=== PATIENT | female | born 1935 | race Caucasian/White ===

== ENCOUNTER 2019-05-08 10:42 | Emergency (ER) | payer MEDICARE ==
--- NOTE | 2019-05-08 11:14 | ER Document Report ---
ED Medical Screen (RME) - General Chief Complaint: Urinary Frequency Stated Complaint: EAR PAIN, URINARY ISSUES Time Seen by Provider: 05/08/19 11:07 Mode of Arrival: Ambulatory Information source: Patient Notes: This 84-year-old female presents emergency department with urinary frequency for the past 2 weeks. Patient gives history of back surgery 2 months ago with a UTI post surgery. She reports she was treated with antibiotics for that and she believes the UTI is back. She also complains of lower abdominal pain in bilateral flank pain. She reports that abdominal pain and flank pain come and go. She also complains that when she lays on her left side her right ear hurts. Denies fever vomiting diarrhea. No abdominal pain with palpation at this time but patient reports bilateral flank pain tender to palpate. I have greeted and performed a rapid initial assessment of this patient. A comprehensive ED assessment and evaluation of the patient, analysis of test results and completion of the medical decision making process will be conducted by additional ED providers. Dictation of this chart was performed using voice recognition software; therefore, there may be some unintended grammatical errors. TRAVEL OUTSIDE OF THE [place] IN LAST 30 DAYS: No - Related Data Allergies/Adverse Reactions: No Known Allergies Allergy (Unverified 05/08/19 10:44) Physical Exam - Vital signs Vitals: Temp Pulse Resp BP Pulse Ox 97.4 F 100 18 105/57 L 95 05/08/19 10:52 05/08/19 10:52 05/08/19 10:52 05/08/19 10:52 05/08/19 10:52 Course - Vital Signs Vital signs: Temp Pulse Resp BP Pulse Ox 97.4 F 100 18 105/57 L 95 05/08/19 10:52 05/08/19 10:52 05/08/19 10:52 05/08/19 10:52 05/08/19 10:52
[2019-05-08 11:37] LABS: ABSOLUTE LYMPHOCYTES (AUTO) 1.3 10^3/uL (0.5-4.7); ABSOLUTE MONOCYTES (AUTO) 0.4 10^3/uL (0.1-1.4); ABSOLUTE NEUT (AUTO) 4.6 10^3/uL (1.7-8.2); BASOPHILS % (AUTO) 0.5 % (0-2); EOSINOPHILS % (AUTO) 0.8 % (0-6); HEMOGLOBIN 15.3 g/dL (12.0-15.5); LYMPHOCYTES % (AUTO) 19.8 % (13-45); MEAN CORPUSCULAR HEMOGLOBIN 31.3 pg (27.0-33.4); MEAN CORPUSCULAR VOLUME 92 fl (80-97); MONOCYTES % (AUTO) 6.4 % (3-13); PLATELET COUNT 175 10^3/uL (150-450); RED BLOOD COUNT 4.88 10^6/uL (3.72-5.28); RED CELL DISTRIBUTION WIDTH 14.8 % (11.5-14.0); SEGMENTED NEUTROPHILS % (AUTO) 72.5 % (42-78); TOTAL CELLS COUNTED % (AUTO) 100 %; WHITE BLOOD COUNT 6.4 10^3/uL (4.0-10.5)
[2019-05-08 11:40] LABS: APPEARANCE,URINE SLIGHTLY-CLOUDY; BILIRUBIN,URINE NEGATIVE (NEGATIVE); COLOR,URINE YELLOW; GLUCOSE, URINE NEGATIVE (NEGATIVE); KETONES,URINE NEGATIVE (NEGATIVE); LEUKOCYTE ESTERASE,URINE LARGE (NEGATIVE); NITRITE,URINE NEGATIVE (NEGATIVE); PROTEIN,URINE NEGATIVE (NEGATIVE); URINE SPECIFIC GRAVITY 1.008; UROBILINOGEN,URINE NEGATIVE mg/dL (<2.0)
[2019-05-08 11:55] LABS: ALBUMIN 4.2 g/dL (3.5-5.0); ALKALINE PHOSPHATASE 69 U/L (38-126); ANION GAP 8 (5-19); ASPARTATE AMINO TRANSFERASE 21 U/L (14-36); BILIRUBIN,DIRECT 0.2 mg/dL (0.0-0.4); BILIRUBIN,TOTAL 0.8 mg/dL (0.2-1.3); BLOOD UREA NITROGEN 15 mg/dL (7-20); CALCIUM 9.8 mg/dL (8.4-10.2); CARBON DIOXIDE 30 mmol/L (22-30); CHLORIDE 101 mmol/L (98-107); GLUCOSE 83 mg/dL (75-110); POTASSIUM 4.7 mmol/L (3.6-5.0)
[2019-05-08] MEDS ORDERED: CEFTRIAXONE 1 GM/D5W RTU 1 GM/50 ML RTUPB IV ONE (12:13)
[2019-05-08] MEDS ORDERED: CIPROFLOXACIN HCL/DEXAMETH OTIC DROP 7.5 ML AD ONE (13:28)
--- NOTE | 2019-05-08 13:28 | ER Document Report ---
ED GI/ - General Chief Complaint: Urinary Frequency Stated Complaint: EAR PAIN, URINARY ISSUES Time Seen by Provider: 05/08/19 11:07 Mode of Arrival: Ambulatory Notes: RME NOTE: This 84-year-old female presents emergency department with urinary frequency for the past 2 weeks. Patient gives history of back surgery 2 months ago with a UTI post surgery. She reports she was treated with antibiotics for that and she b elieves the UTI is back. She also complains of lower abdominal pain in bilateral flank pain. She reports that abdominal pain and flank pain come and go. She also complains that when she lays on her left side her right ear hurts. Denies fever vomiting diarrhea. No abdominal pain with palpation at this time but patient reports bilateral flank pain tender to palpate. My HPI: Patient is also complaining of generalized right ear pain. Patient states she has generalized cough and congestion but "I always have a runny nose." Patient is denying any abdominal pain upon my assessment. Is complaining of generalized bilateral flank pain. Denies any fevers or vomiting. Past medical history: Hypertension Medication: Metoprolol TRAVEL OUTSIDE OF THE [place] IN LAST 30 DAYS: No - Related Data Allergies/Adverse Reactions: No Known Allergies Allergy (Unverified 05/08/19 10:44) Past Medical History - General Information source: Patient - Social History Smoking Status: Never Smoker Frequency of alcohol use: None Drug Abuse: None Family History: Reviewed & Not Pertinent Patient has suicidal ideation: No Patient has homicidal ideation: No Review of Systems - Review of Systems Constitutional: denies: Fever EENT: See HPI Cardiovascular: No symptoms reported Respiratory: No symptoms reported Gastrointestinal: See HPI Genitourinary: See HPI Female Genitourinary: No symptoms reported Musculoskeletal: See HPI Skin: No symptoms reported Hematologic/Lymphatic: No symptoms reported Neurological/Psychological: No symptoms reported Physical Exam - Vital signs Vitals: Temp Pulse Resp BP Pulse Ox 97.4 F 100 18 105/57 L 95 05/08/19 10:52 05/08/19 10:52 05/08/19 10:52 05/08/19 10:52 05/08/19 10:52 - Notes Notes: GENERAL: Alert, interacts well. No acute distress. HEAD: Normocephalic, atraumatic. EYES: Pupils equal, round, and reactive to light. Extraocular movements intact. ENT: Oral mucosa moist, tongue midline. Nares patent, left TM intact, right TM partially blocked by cerumen, right tragal tenderness noted, no mastoid erythema or tenderness noted bilaterally. NECK: Full range of motion. Supple. Trachea midline. No cervical lymphadeno [place] appreciated LUNGS: Clear to auscultation bilaterally, no wheezes, rales, or rhonchi. No respiratory distress. HEART: Regular rate and rhythm. No murmur ABDOMEN: Soft, non-tender. Non-distended. Bowel sounds present in all 4 quadrants. EXTREMITIES: Moves all 4 extremities spontaneously. No edema, normal radial and dorsalis pedis pulses bilaterally. No cyanosis. BACK: no cervical, thoracic, lumbar midline tenderness. No saddle anesthesia, normal distal neurovascular exam. Minor CVA tenderness noted bilaterally NEUROLOGICAL: Alert and oriented x3. Normal speech. cranial nerves II through X II grossly intact PSYCH: Normal affect, normal mood. SKIN: Warm, dry, normal turgor. No rashes or lesions noted. Course - Re-evaluation Re-evalutation: 05/08/19 13:25 Laboratory 05/08/19 05/08/19 05/08/19 11:23 11:23 11:23 WBC 6.4 RBC 4.88 Hgb 15.3 Hct 45.0 MCV 92 MCH 31.3 MCHC 34.0 RDW 14.8 H Plt Count 175 Lymph % (Auto) 19.8 [place] % (Auto) 6.4 Eos % (Auto) 0.8 Baso % (Auto) 0.5 Absolute Neuts (auto) 4.6 Absolute Lymphs (auto) 1.3 Absolute Monos (auto) 0.4 Absolute Eos (auto) 0.0 Absolute Basos (auto) 0.0 Seg Neutrophils % 72.5 Sodium 139.2 Potassium 4.7 Chloride 101 Carbon Dioxide 30 Anion Gap 8 BUN 15 Creatinine 0.87 Est GFR ( Amer) > 60 Est GFR (MDRD) Non-Af > 60 Glucose 83 Calcium 9.8 Total Bilirubin 0.8 Direct Bilirubin 0.2 Neonat Total Bilirubin Not Reportable Neonat Direct Bilirubin Not Reportable Neonat Indirect Bili Not Reportable AST 21 ALT 17 Alkaline Phosphatase 69 Total Protein 7.0 Albumin 4.2 Urine Color YELLOW Urine Appearance SLIGHTLY-CLOUDY Urine pH 7.0 Ur Specific [place] 1.008 Urine Protein NEGATIVE Urine Glucose (UA) NEGATIVE Urine Ketones NEGATIVE Urine Blood NEGATIVE Urine Nitrite NEGATIVE Urine Bilirubin NEGATIVE Urine Urobilinogen NEGATIVE Ur Leukocyte Esterase LARGE H Urine WBC (Auto) 144 Urine RBC (Auto) 1 Urine Bacteria (Auto) TRACE Squamous Epi Cells Auto 11 Urine Mucus (Auto) RARE Urine Ascorbic Acid 40 H Patient's urine does show signs of infection, sent for culture. Based on patient's complaint of treated with initial dose of ceftriaxone in the emergency room. Patient's physical exam of her right ear does show signs of otitis externa, will treat for same. Discussed use of Keflex for urinary tract infection. Patient has nausea vomiting, afebrile, conscious alert and oriented x4. At this time will discharge with return precautions and follow-up recommendations. Verbal discharge instructions given a the bedside and opportunity for questions given. Medication warnings reviewed. Patient is in agreement with this plan and has verbalized understanding of return precautions and the need for primary care follow-up in the next 24-72 hours. This medical record was dictated with voice recognizing software. There may be grammatical, syntax errors that are unintended. - Vital Signs Vital signs: Temp Pulse Resp BP Pulse Ox 97.4 F 100 18 105/57 L 95 05/08/19 10:52 05/08/19 10:52 05/08/19 10:52 05/08/19 10:52 05/08/19 10:52 - Laboratory Result Diagrams: 05/08/19 11:23 05/08/19 11:23 Laboratory results interpreted by me: 05/08/19 05/08/19 11:23 11:23 RDW 14.8 H Ur Leukocyte Esterase LARGE H Urine Ascorbic Acid 40 H Discharge - Discharge Clinical Impression: Urinary tract infection Qualifiers: Urinary tract infection type: acute cystitis Hematuria presence: with hematuria Qualified Code(s): N30.01 - Acute cystitis with hematuria Otitis externa Qualifiers: Otitis externa type: unspecified type Chronicity: acute Laterality: right Qualified Code(s): H60.501 - Unspecified acute noninfective otitis externa, right ear Condition: Stable Disposition: HOME, SELF-CARE Instructions: Otitis Externa ([facility]), Urinary Tract Infection ([facility]), Cephalexin ([facility]), Use of Ear Drops ([facility]) Additional Instructions: As we discussed you have been seen and treated in the emergency department for a urinary tract infection and an outer right ear infection. Please take medications as prescribed. Please also follow-up with your primary care provider in the next 24 to 48 hours. Return to the emergency room for any further concerns. Prescriptions: Ciprofloxacin HCl/Dexameth [Ciprodex Otic Suspension 7.5 ml Bottle] 4 drop OT BID #1 bottle Cephalexin Monohydrate [Keflex 500 mg Capsule] 500 mg PO BID 7 Days #14 capsule
[2019-05-08 13:49] VITALS: BP 110/52
== END 2019-05-08 13:49 | disposition home or self-care (01) ==
LOC: ER 10:42
DX: N30.01 Acute cystitis with hematuria (principal); H60.501 Unspecified acute noninfective otitis externa, right ear; R35.0 Frequency of micturition; R10.30 Lower abdominal pain, unspecified; H92.01 Otalgia, right ear; R05 Cough; R09.81 Nasal congestion; R09.89 Other specified symptoms and signs involving the circulatory and respiratory systems; R10.84 Generalized abdominal pain; I10 Essential (primary) hypertension; Z79.899 Other long term (current) drug therapy
CPT/HCPCS: 99283; 96365; 36415; 87086; 85025; 87088; 80053; 81001; 87186; J3490; J0696

== ENCOUNTER 2019-05-11 13:06 | Inpatient (IN) | payer MEDICARE ==
[2019-05-11] MEDS ORDERED: KETOROLAC TROMETHAMINE INJ/PF 30 MG/1 ML SDV IM ONE (14:06)
[2019-05-11] MEDS ORDERED: LIDOCAINE 5% (700 MG) TRANSDERMAL ADH..PATCH TP ONE (14:06)
[2019-05-11] MEDS ORDERED: METHOCARBAMOL 500 MG TABLET PO ONE (14:06)
--- NOTE | 2019-05-11 14:09 | ER Document Report ---
ED Medical Screen (RME) - General Chief Complaint: Back Pain Stated Complaint: BACK PAIN Time Seen by Provider: 05/11/19 13:58 Notes: Patient is an 84-year-old female presents to emergency department with a chief complaint of left lower back pain. Patient states yesterday while at the store she bent down to remove her depends and use the restroom when she developed left lower back pain. Patient reports she had surgery in November of this year for compression fracture. She states that she was told not to bend or twist. Patient concerned because she did have to bend down to pull her pants. Patient denies numbness or tingling to her lower extremities. Patient denies loss of bowel or bladder that is any different from her normal. Patient states she has not taken anything for her discomfort. Patient states that she is having left lower back pain that radiates into the left hip. Patient denies injury or fall. TRAVEL OUTSIDE OF THE [place] IN LAST 30 DAYS: No - Related Data Allergies/Adverse Reactions: No Known Allergies Allergy (Verified 05/11/19 13:21) Physical Exam - Vital signs Vitals: Temp Pulse Resp BP Pulse Ox 97.8 F 111 H 16 107/70 97 05/11/19 13:22 05/11/19 13:22 05/11/19 13:22 05/11/19 13:22 05/11/19 13:22 Interpretation: Tachycardic - Back Notes: NO CERVICAL, THORACIC OR LUMBAR MIDLINE TENDERNESS WITH PALPATION. Tenderness noted to the left lower back and left gluteus georgi. The pain is worse with palpation. Course - Re-evaluation Re-evalutation: 05/11/19 14:09 I have greeted and performed a rapid initial assessment of this patient. A comprehensive ED assessment and evaluation of the patient, analysis of test results and completion of the medical decision making process will be conducted by additional ED providers. - Vital Signs Vital signs: Temp Pulse Resp BP Pulse Ox 97.8 F 111 H 16 107/70 97 05/11/19 13:22 05/11/19 13:22 05/11/19 13:22 05/11/19 13:22 05/11/19 13:22
[2019-05-11 15:53] LABS: BASOPHILS % (AUTO) 0.2 % (0-2); EOSINOPHILS % (AUTO) 0.4 % (0-6); HEMOGLOBIN 15.9 g/dL (12.0-15.5); TOTAL CELLS COUNTED % (AUTO) 100 %
[2019-05-11 15:58] LABS: ABSOLUTE LYMPHOCYTES (AUTO) 1.2 10^3/uL (0.5-4.7); ABSOLUTE MONOCYTES (AUTO) 0.4 10^3/uL (0.1-1.4); ABSOLUTE NEUT (AUTO) 5.9 10^3/uL (1.7-8.2); LYMPHOCYTES % (AUTO) 15.9 % (13-45); MEAN CORPUSCULAR HEMOGLOBIN 31.1 pg (27.0-33.4); MEAN CORPUSCULAR HGB CONC 33.9 g/dL (32.0-36.0); MEAN CORPUSCULAR VOLUME 92 fl (80-97); MONOCYTES % (AUTO) 5.5 % (3-13); PLATELET COUNT 183 10^3/uL (150-450); RED BLOOD COUNT 5.11 10^6/uL (3.72-5.28); RED CELL DISTRIBUTION WIDTH 14.5 % (11.5-14.0); WHITE BLOOD COUNT 7.5 10^3/uL (4.0-10.5)
[2019-05-11 16:10] LABS: ALBUMIN 4.6 g/dL (3.5-5.0); ANION GAP 11 (5-19); ASPARTATE AMINO TRANSFERASE 22 U/L (14-36); BILIRUBIN,DIRECT 0.2 mg/dL (0.0-0.4); BILIRUBIN,TOTAL 1.5 mg/dL (0.2-1.3); BLOOD UREA NITROGEN 14 mg/dL (7-20); CARBON DIOXIDE 28 mmol/L (22-30); CHLORIDE 100 mmol/L (98-107); GLUCOSE 93 mg/dL (75-110); POTASSIUM 4.8 mmol/L (3.6-5.0); TOTAL PROTEIN 7.6 g/dL (6.3-8.2)
[2019-05-11 16:12] LABS: ALKALINE PHOSPHATASE 83 U/L (38-126)
[2019-05-11] MEDS ORDERED: DILTIAZEM HCL/D5W 125 MG/125 ML RTUINJ IV PRN ×2 (18:21→21:01)
[2019-05-11] MEDS ORDERED: DILTIAZEM HCL INJ 25 MG/5 ML VIAL IV ONE (18:21)
[2019-05-11] MEDS ORDERED: NORMAL SALINE 500 ML IV ONE ×3 (18:53→19:57)
[2019-05-11 19:01] LABS: APPEARANCE,URINE SLIGHTLY-CLOUDY; BILIRUBIN,URINE NEGATIVE (NEGATIVE); COLOR,URINE YELLOW; GLUCOSE, URINE NEGATIVE (NEGATIVE); KETONES,URINE TRACE mg/dL (NEGATIVE); LEUKOCYTE ESTERASE,URINE MODERATE (NEGATIVE); NITRITE,URINE NEGATIVE (NEGATIVE); PROTEIN,URINE NEGATIVE (NEGATIVE); URINE SPECIFIC GRAVITY 1.017; UROBILINOGEN,URINE NEGATIVE mg/dL (<2.0)
--- NOTE | 2019-05-11 19:43 | EKG REPORT ---
SEVERITY:- ABNORMAL ECG - ATRIAL FIBRILLATION, V-RATE 93-176 REPOLARIZATION ABNORMALITY, PROB RATE RELATED : Confirmed by: Cassi Jean MD 11-May-2019 19:43:07
--- NOTE | 2019-05-11 19:49 | RADIOLOGY REPORT (SQ) ---
EXAM DESCRIPTION: CHEST SINGLE VIEW COMPLETED DATE/TIME: 05/11/2019 7:40 pm REASON FOR STUDY: rapid atrial fibrillation COMPARISON: None. EXAM PARAMETERS: NUMBER OF VIEWS: One view. TECHNIQUE: Single frontal radiographic view of the chest acquired. RADIATION DOSE: NA LIMITATIONS: None. FINDINGS: LUNGS AND PLEURA: No opacities, masses or pneumothorax. No pleural effusion. MEDIASTINUM AND HILAR STRUCTURES: No masses. Contour normal. HEART AND VASCULAR STRUCTURES: Heart normal in size. Normal vasculature. BONES: No acute findings. HARDWARE: None in the chest. OTHER: No other significant finding. IMPRESSION: NO ACUTE RADIOGRAPHIC FINDING IN THE CHEST. TECHNICAL DOCUMENTATION: JOB ID: [id number] [id number] 2010 [employer]- All Rights Reserved Reading location - IP/workstation name: [email or web address]
--- NOTE | 2019-05-11 20:32 | RADIOLOGY REPORT (SQ) ---
CT LUMBAR SPINE WITHOUT IV CONTRAST EXAM DATE: 05/11/2019 7:18 PM CDT HISTORY: Low back pain, h/o compression fx. COMPARISON: None. TECHNIQUE: CT scan of the lumbar spine without IV contrast. This exam was performed according to our departmental dose-optimization program, which includes automated exposure control, adjustment of the mA and/or kV according to patient size and/or use of iterative reconstruction technique. FINDINGS: There is an acute compression fracture of L3 with approximately 70% compression. No retropulsion. The disc spaces are preserved. Mild bilateral facet DJD. Prior kyphoplasty of L1 and L4. The sacroiliac joints demonstrate mild degenerative changes. IMPRESSION: 1. Acute L3 compression fracture without retropulsion. 2. Prior kyphoplasty of L1 and L4.
[2019-05-11] MEDS ORDERED: ACETAMINOPHEN 325 MG TABLET PO PRN (21:01)
[2019-05-11] MEDS ORDERED: MAG HYDROX/AL HYDROX/SIMETH SUSP 30 ML UDCUP PO PRN (21:01)
[2019-05-11] MEDS ORDERED: KETOROLAC TROMETHAMINE INJ/PF 30 MG/1 ML SDV IV PRN (21:05)
--- NOTE | 2019-05-11 21:06 | ER Document Report ---
ED General - General Chief Complaint: Back Pain Stated Complaint: BACK PAIN Time Seen by Provider: 05/11/19 13:58 TRAVEL OUTSIDE OF THE [place] IN LAST 30 DAYS: No - HPI Notes: Patient is an 84-year-old female who presents emergency department for evaluation of low back pain. She has a history of chronic back pain and multiple compression fractures. She states that she is not supposed to bend over. She was having some incontinence issues, had to clean herself, and bent over. This was 2 days ago. She had sudden onset severe pain in her lower back. It does not radiate. She was also seen here recently diagnosed with UTI. She states she is taking her medications as prescribed, starting yesterday. Patient also notes that she has a history of atrial fibrillation. She states that she stopped taking the rate control medicines that she did not like the way they made her feel. She has outright refused anticoagulation in the past. - Related Data Allergies/Adverse Reactions: No Known Allergies Allergy (Verified 05/11/19 13:21) Past Medical History - General Information source: Patient - Social History Smoking Status: Never Smoker Family History: Reviewed & Not Pertinent Patient has suicidal ideation: No Patient has homicidal ideation: No - Past Medical History Cardiac Medical History: Reports: Hx Atrial Fibrillation Musculoskeletal Medical History: Reports Other - Multiple compression fractures of the spine Review of Systems - Review of Systems Constitutional: See HPI EENT: No symptoms reported Cardiovascular: See HPI Respiratory: No symptoms reported Gastrointestinal: No symptoms reported Genitourinary: See HPI Musculoskeletal: See HPI Skin: No symptoms reported Neurological/Psychological: No symptoms reported Physical Exam - Vital signs Vitals: Temp Pulse Resp BP Pulse Ox 97.8 F 111 H 16 107/70 97 05/11/19 13:22 05/11/19 13:22 05/11/19 13:22 05/11/19 13:22 05/11/19 13:22 - Notes Notes: Vital signs reviewed, please refer to chart. Head is normocephalic, atraumatic. Pupils equal round, reactive to light. Neck is supple without meningismus. Heart is irregularly irregular and tachycardic. Lungs are clear to auscultation bilaterally. Abdomen is soft, nontender, normoactive bowel sounds throughout. Examination of the spine yields midline tenderness throughout the lumbar spine. Mild paraspinal musculature tenderness appreciated as well. Negative straight leg raise bilaterally. Strength is 4+ out of 5 bilateral lower extremities. Sensation is intact. Reflexes symmetrical. Extremities without cyanosis, clubbing. Posterior calves are nontender. Peripheral pulses are equal. Skin is warm and dry. Patient is awake, alert, neurological exam is nonfocal. Course - Re-evaluation Re-evalutation: 05/11/19 21:07 Patient presents emergency department for evaluation. Upon initial evaluation she is found to be markedly tachycardic. She does have some what appear to be rate related ischemic changes on EKG. She was placed on a talcer, Cardizem was administered. Laboratory investigations were obtained. Because of her significant lumbar spine pain, I did order a CT scan of the lumbar spine as well. Her images revealed no acute lumbar spine fracture without retropulsion. At this point, on a Cardizem drip, after receiving a small amount of fluids, the patient's heart rate is 106. Her blood pressures have normalized with a normal map. I spoke with Dr. Chapin, he will admit the patient for further care. - Vital Signs Vital signs: Temp Pulse Resp BP Pulse Ox 97.8 F 111 H 20 100/72 100 05/11/19 13:22 05/11/19 13:22 05/11/19 21:00 05/11/19 20:10 05/11/19 20:10 - Laboratory Result Diagrams: 05/11/19 15:30 05/11/19 15:30 Laboratory results interpreted by me: 05/11/19 05/11/19 05/11/19 15:30 15:30 18:10 Hgb 15.9 H RDW 14.5 H Total Bilirubin 1.5 H Urine Ketones TRACE H Ur Leukocyte Esterase MODERATE H Urine Ascorbic Acid 40 H - Diagnostic Test Radiology reviewed: Reports reviewed Radiology results interpreted by me: 05/11/19 21:08 Chest X-Ray 05/11/19 19:18 IMPRESSION: NO ACUTE RADIOGRAPHIC FINDING IN THE CHEST. Lumbar Spine CT 05/11/19 19:18 IMPRESSION: 1. Acute L3 compression fracture without retropulsion. 2. Prior kyphoplasty of L1 and L4. - EKG Interpretation by Me Additional EKG results interpreted by me: 05/11/19 21:08 Atrial fibrillation with a rate of [address] and T wave changes of the lateral leads, likely rate related ischemia. No old studies available for comparison. Discharge - Discharge Clinical Impression: Rapid atrial fibrillation Lumbar compression fracture Qualifiers: Encounter type: initial encounter Lumbar vertebra fracture level: L3 Qualified Code(s): S32.030A - Wedge compression fracture of third lumbar vertebra, initial encounter for closed fracture Condition: Stable Disposition: ADMITTED INPATIENT Admitting Provider: Tavares (Hospitalist) Unit Admitted: [facility]
[2019-05-12] MEDS: HEPARIN SOD (PORCINE) 5,000 UNIT/ML 1 ML VIAL SUBCUT SCH ×4 (00:43→21:28)
[2019-05-12 04:31] LABS: ABSOLUTE EOSINOPHILS # (AUTO) 0.1 10^3/uL (0.0-0.6); ABSOLUTE LYMPHOCYTES (AUTO) 1.4 10^3/uL (0.5-4.7); ABSOLUTE MONOCYTES (AUTO) 0.4 10^3/uL (0.1-1.4); ABSOLUTE NEUT (AUTO) 3.2 10^3/uL (1.7-8.2); BASOPHILS % (AUTO) 0.4 % (0-2); EOSINOPHILS % (AUTO) 1.3 % (0-6); HEMATOCRIT 39.7 % (36.0-47.0); LYMPHOCYTES % (AUTO) 27.3 % (13-45); MEAN CORPUSCULAR HEMOGLOBIN 30.8 pg (27.0-33.4); MEAN CORPUSCULAR HGB CONC 33.7 g/dL (32.0-36.0); MEAN CORPUSCULAR VOLUME 91 fl (80-97); MONOCYTES % (AUTO) 7.8 % (3-13); PLATELET COUNT 139 10^3/uL (150-450); RED BLOOD COUNT 4.35 10^6/uL (3.72-5.28); RED CELL DISTRIBUTION WIDTH 14.2 % (11.5-14.0); SEGMENTED NEUTROPHILS % (AUTO) 63.2 % (42-78); TOTAL CELLS COUNTED % (AUTO) 100 %; WHITE BLOOD COUNT 5.1 10^3/uL (4.0-10.5)
[2019-05-12 04:42] LABS: HEMOGLOBIN 13.4 g/dL (12.0-15.5)
[2019-05-12 04:52] LABS: ANION GAP 8 (5-19); BLOOD UREA NITROGEN 15 mg/dL (7-20); CARBON DIOXIDE 26 mmol/L (22-30); CHLORIDE 105 mmol/L (98-107); GLUCOSE 100 mg/dL (75-110)
[2019-05-12 04:58] LABS: POTASSIUM 3.7 mmol/L (3.6-5.0)
--- NOTE | 2019-05-12 05:55 | PDOC H&P ---
History of Present Illness Admission Date/PCP: 05/11/19 21:14 Patient complains of: Acute on chronic back pain History of Present Illness: HUGH MARINO is a 84 year old female with a past medical history of osteoporosis with recurrent vertebral fracture, atrial fibrillation without medication secondary to intolerance of metoprolol, refusing anticoagulation with a homeopathic preference. In the emergency room she is found to have a subacute LS compression fracture without retropulsion, symptoms are easily managed without narcotics. She is found to have A. fib with RVR started on IV Cardizem and referred to the hospitalist for admission. Patient denies chest pain nausea vomiting shortness of breath and is referred to the hospitalist for admission. Patient admits noncompliance with prescribed medications preferring homeopathic remedies. She is unaware of these specific remedy names or products. Past Medical History Cardiac Medical History: Reports: Atrial Fibrillation Musculoskeltal Medical History: Reports: Other - Multiple compression fractures of the spine Social History Information Source: Patient Lives with: Family Smoking Status: Never Smoker Frequency of Alcohol Use: None Hx Recreational Drug Use: No Drugs: None - Advance Directive Resuscitation Status: Full Code Family History Family History: Arthritis, Hypertension Parental Family History Reviewed: Yes Children Family History Reviewed: Yes Sibling(s) Family History Reviewed.: Yes Medication/Allergy Home Medications: Cephalexin Monohydrate [Keflex 500 mg Capsule] 500 mg PO BID 7 Days #14 capsule 05/08/19 Ciprofloxacin HCl/Dexameth [Ciprodex Otic Suspension 7.5 ml Bottle] 4 drop OT BID #1 bottle 05/08/19 Allergies/Adverse Reactions: No Known Allergies Allergy (Verified 05/11/19 13:21) Review of Systems Constitutional: ABSENT: chills, fever(s), headache(s), weight gain, weight loss Eyes: ABSENT: visual disturbances Ears: ABSENT: hearing changes Cardiovascular: ABSENT: chest pain, dyspnea on exertion, edema, orthropnea, palpitations Respiratory: ABSENT: cough, hemoptysis Gastrointestinal: ABSENT: abdominal pain, constipation, diarrhea, hematemesis, hematochezia, nausea, vomiting Genitourinary: ABSENT: dysuria, hematuria Musculoskeletal: ABSENT: joint swelling Integumentary: ABSENT: rash, wounds Neurological: ABSENT: abnormal gait, abnormal speech, confusion, dizziness, focal weakness, syncope Psychiatric: ABSENT: anxiety, depression, homidical ideation, suicidal ideation Endocrine: ABSENT: cold intolerance, heat intolerance, polydipsia, polyuria Hematologic/Lymphatic: ABSENT: easy bleeding, easy bruising Physical Exam Vital Signs: Temp Pulse Resp BP Pulse Ox 97.8 F 100 20 102/60 93 05/12/19 03:32 05/12/19 05:00 05/12/19 03:32 05/12/19 05:00 05/12/19 03:32 Intake & Output 05/10/19 05/11/19 05/12/19 11:59 11:59 11:59 Intake Total 1000 Balance 1000 Weight 67.9 kg General appearance: PRESENT: no acute distress, cooperative, well-developed, well-nourished Head exam: PRESENT: atraumatic, normocephalic Eye exam: PRESENT: conjunctiva pink, EOMI, PERRLA. ABSENT: scleral icterus Ear exam: PRESENT: normal external ear exam Mouth exam: PRESENT: moist, tongue midline Neck exam: ABSENT: carotid bruit, JVD, lymphadenopathy, thyromegaly Respiratory exam: PRESENT: clear to auscultation william. ABSENT: accessory muscle use, rales, rhonchi, wheezes Cardiovascular exam: PRESENT: RRR, +S1, +S2, tachycardia. ABSENT: diastolic murmur, rubs, systolic murmur Pulses: PRESENT: normal dorsalis pedis pul Vascular exam: PRESENT: normal capillary refill GI/Abdominal exam: PRESENT: normal bowel sounds, soft. ABSENT: distended, guarding, mass, organolmegaly, rebound, tenderness Rectal exam: PRESENT: deferred Extremities exam: PRESENT: full ROM. ABSENT: calf tenderness, clubbing, pedal edema Musculoskeletal exam: PRESENT: full ROM, other - L-spine mobility limited secondary to pain. ABSENT: tenderness Neurological exam: PRESENT: alert, awake, oriented to person, oriented to place, oriented to time, oriented to situation, CN II-XII grossly intact. ABSENT: motor sensory deficit Psychiatric exam: PRESENT: appropriate affect, normal mood. ABSENT: homicidal ideation, suicidal ideation Skin exam: PRESENT: dry, intact, warm. ABSENT: cyanosis, rash Results Laboratory Results: 05/12/19 04:06 05/12/19 04:06 05/11/19 05/11/19 05/11/19 15:30 15:30 15:30 WBC 7.5 RBC 5.11 Hgb 15.9 H Hct 47.0 MCV 92 MCH 31.1 MCHC 33.9 RDW 14.5 H Plt Count 183 Seg Neutrophils % 78.0 Sodium 139.0 Potassium 4.8 Chloride 100 Carbon Dioxide 28 Anion Gap 11 BUN 14 Creatinine 0.80 Est GFR ( Amer) > 60 Glucose 93 Calcium 10.0 Total Bilirubin 1.5 H AST 22 Alkaline Phosphatase 83 Total Protein 7.6 Albumin 4.6 TSH 1.62 Urine Color Urine Appearance Urine pH Ur Specific [place] Urine Protein Urine Glucose (UA) Urine Ketones Urine Blood Urine Nitrite Ur Leukocyte Esterase Urine WBC (Auto) Urine RBC (Auto) 05/11/19 05/12/19 05/12/19 18:10 04:06 04:06 WBC 5.1 RBC 4.35 Hgb 13.4 D Hct 39.7 MCV 91 MCH 30.8 MCHC 33.7 RDW 14.2 H Plt Count 139 L Seg Neutrophils % 63.2 Sodium 138.9 Potassium 3.7 D Chloride 105 Carbon Dioxide 26 Anion Gap 8 BUN 15 Creatinine 0.69 Est GFR ( Amer) > 60 Glucose 100 Calcium 9.0 Total Bilirubin AST Alkaline Phosphatase Total Protein Albumin TSH Urine Color YELLOW Urine Appearance SLIGHTLY-CLOUDY Urine pH 6.0 Ur Specific [place] 1.017 Urine Protein NEGATIVE Urine Glucose (UA) NEGATIVE Urine Ketones TRACE H Urine Blood NEGATIVE Urine Nitrite NEGATIVE Ur Leukocyte Esterase MODERATE H Urine WBC (Auto) 18 Urine RBC (Auto) 6 05/11/19 15:30 Troponin I < 0.012 Impressions: Chest X-Ray 05/11/19 19:18 IMPRESSION: NO ACUTE RADIOGRAPHIC FINDING IN THE CHEST. Lumbar Spine CT 05/11/19 19:18 IMPRESSION: 1. Acute L3 compression fracture without retropulsion. 2. Prior kyphoplasty of L1 and L4. Assessment and Plan - Diagnosis (1) Lumbar compression fracture Qualifiers: Encounter type: initial encounter Lumbar vertebra fracture level: L3 Qualified Code(s): S32.030A - Wedge compression fracture of third lumbar vertebra, initial encounter for closed fracture Is this a current diagnosis for this admission?: Yes Plan: Patient responding well to NSAID management and topical lidocaine. Consider pain management consult. (2) Rapid atrial fibrillation Is this a current diagnosis for this admission?: Yes Plan: Long-standing, intolerant of beta-gary, IV Cardizem, transition to p.o. Refuses anticoagulation - Time Time Spent with patient: 25-34 minutes - Inpatient Certification Medical Necessity: Need Close Monitoring Due to Risk of Patient Decompensation
[2019-05-12] MEDS: DOCUSATE SODIUM 100 MG CAPSULE PO SCH ×2 (10:00→18:00)
[2019-05-12] MEDS: DILTIAZEM HCL 30 MG TABLET PO SCH (14:48)
--- NOTE | 2019-05-12 17:02 | PDOC PROGRESS REPORT ---
Subjective Progress Note for:: 05/12/19 Subjective:: No adverse events overnight. No new complaints. Vital signs been stable. As long as she lays flat on her back, her back does not hurt but when she tries to move it hurts pretty bad. She has not had any bowel or bladder incontinence or leg numbness. Heart rate has been controlled on low-dose Cardizem drip. Reason For Visit: RAPID ATRIAL FIBRILATION,LUMBAR COMPRESSION Physical Exam Vital Signs: Temp Pulse Resp BP Pulse Ox 97.5 F 79 18 107/79 95 05/12/19 11:47 05/12/19 15:00 05/12/19 11:47 05/12/19 15:00 05/12/19 11:47 Intake & Output 05/11/19 05/12/19 05/13/19 06:59 06:59 06:59 Intake Total 1000 112 Output Total 300 Balance 700 112 Weight 67.9 kg General appearance: PRESENT: no acute distress, cooperative Respiratory exam: PRESENT: clear to auscultation william, symmetrical, unlabored. ABSENT: accessory muscle use, chest wall tenderness, crackles, prolonged expi ratory phas, rhonchi, tachypnea, wheezes Cardiovascular exam: PRESENT: irregular rhythm Pulses: PRESENT: normal carotid pulses Vascular exam: PRESENT: normal capillary refill GI/Abdominal exam: PRESENT: normal bowel sounds, soft. ABSENT: distended, guarding, rebound, tenderness Extremities exam: ABSENT: clubbing, pedal edema Musculoskeletal exam: PRESENT: normal inspection, other - She did not want for me to roll her to her side so I could examine her spine. ABSENT: deformity Neurological exam: PRESENT: alert, awake, oriented to person, oriented to place, oriented to situation Psychiatric exam: PRESENT: appropriate affect, normal mood Skin exam: PRESENT: dry, warm Results Laboratory Results: 05/12/19 04:06 05/12/19 04:06 05/11/19 05/11/19 05/12/19 15:30 18:10 04:06 WBC 5.1 RBC 4.35 Hgb 13.4 D Hct 39.7 MCV 91 MCH 30.8 MCHC 33.7 RDW 14.2 H Plt Count 139 L Seg Neutrophils % 63.2 Sodium Potassium Chloride Carbon Dioxide Anion Gap BUN Creatinine Est GFR ( Amer) Glucose Calcium TSH 1.62 Urine Color YELLOW Urine Appearance SLIGHTLY-CLOUDY Urine pH 6.0 Ur Specific [place] 1.017 Urine Protein NEGATIVE Urine Glucose (UA) NEGATIVE Urine Ketones TRACE H Urine Blood NEGATIVE Urine Nitrite NEGATIVE Ur Leukocyte Esterase MODERATE H Urine WBC (Auto) 18 Urine RBC (Auto) 6 05/12/19 04:06 WBC RBC Hgb Hct MCV MCH MCHC RDW Plt Count Seg Neutrophils % Sodium 138.9 Potassium 3.7 D Chloride 105 Carbon Dioxide 26 Anion Gap 8 BUN 15 Creatinine 0.69 Est GFR ( Amer) > 60 Glucose 100 Calcium 9.0 TSH Urine Color Urine Appearance Urine pH Ur Specific [place] Urine Protein Urine Glucose (UA) Urine Ketones Urine Blood Urine Nitrite Ur Leukocyte Esterase Urine WBC (Auto) Urine RBC (Auto) 05/11/19 15:30 Troponin I < 0.012 Impressions: Chest X-Ray 05/11/19 19:18 IMPRESSION: NO ACUTE RADIOGRAPHIC FINDING IN THE CHEST. Lumbar Spine CT 05/11/19 19:18 IMPRESSION: 1. Acute L3 compression fracture without retropulsion. 2. Prior kyphoplasty of L1 and L4. Assessment and Plan - Diagnosis (1) Rapid atrial fibrillation Is this a current diagnosis for this admission?: Yes Plan: We switched her over to oral Cardizem today and have switched off the drip. If this controls her throughout the night, we will plan to switch her to a long- acting Cardizem in the morning. Her chads vASC score is 2, only because of her age. (2) Lumbar compression fracture Qualifiers: Encounter type: initial encounter Lumbar vertebra fracture level: L3 Qualified Code(s): S32.030A - Wedge compression fracture of third lumbar vertebra, initial encounter for closed fracture Is this a current diagnosis for this admission?: Yes Plan: We will try to get her pain controlled and will get physical therapy to see her. She does not have any signs of neurological compromise and there was no retropulsion of the vertebral fragments noted on CT. it was noted that she had about 70% compression. She is had a kyphoplasty at L1 and L4 previously. Depending on how she does her physical therapy and her level of pain control, we may need to consult Dr. Valdes for another kyphoplasty. - Time Time Spent with patient: 15-24 minutes
[2019-05-13] MEDS: DILTIAZEM HCL 30 MG TABLET PO SCH ×2 (01:18→06:15)
[2019-05-13] MEDS: HEPARIN SOD (PORCINE) 5,000 UNIT/ML 1 ML VIAL SUBCUT SCH ×3 (06:15→21:05)
[2019-05-13] MEDS: DILTIAZEM HCL 120 MG CAP.SR.24H PO SCH (10:27)
[2019-05-13] MEDS: DOCUSATE SODIUM 100 MG CAPSULE PO SCH ×2 (10:29→17:55)
--- NOTE | 2019-05-13 17:33 | PDOC PROGRESS REPORT ---
Subjective Progress Note for:: 05/13/19 Subjective:: No adverse events overnight. No new complaints. Heart rate has been well controlled after switching her to oral Cardizem. Blood pressure has remained in her typical range. She continues to have back pain when she tries to move but at rest she is okay. No leg numbness or bowel or bladder incontinence. Reason For Visit: RAPID ATRIAL FIBRILATION,LUMBAR COMPRESSION Physical Exam Vital Signs: Temp Pulse Resp BP Pulse Ox 98.1 F 63 17 92/52 L 95 05/13/19 15:20 05/13/19 15:20 05/13/19 15:20 05/13/19 15:20 05/13/19 15:20 Intake & Output 05/12/19 05/13/19 05/14/19 06:59 06:59 06:59 Intake Total 1000 852 400 Output Total 300 1500 600 Balance 700 -648 -200 Weight 67.9 kg 68.2 kg General appearance: PRESENT: no acute distress, cooperative Respiratory exam: PRESENT: clear to auscultation william, symmetrical, unlabored. ABSENT: accessory muscle use, chest wall tenderness, crackles, prolonged expiratory phas, rhonchi, tachypnea, wheezes Cardiovascular exam: PRESENT: irregular rhythm Pulses: PRESENT: normal carotid pulses Vascular exam: PRESENT: normal capillary refill GI/Abdominal exam: PRESENT: normal bowel sounds, soft. ABSENT: distended, guarding, rebound, tenderness Extremities exam: ABSENT: clubbing, pedal edema Musculoskeletal exam: PRESENT: normal inspection, other - She did not want for me to roll her to her side so I could examine her spine. ABSENT: deformity Neurological exam: PRESENT: alert, awake, oriented to person, oriented to place, oriented to situation Psychiatric exam: PRESENT: appropriate affect, normal mood Skin exam: PRESENT: dry, warm Results Laboratory Results: 05/12/19 04:06 05/12/19 04:06 05/11/19 15:30 Troponin I < 0.012 Impressions: Chest X-Ray 05/11/19 19:18 IMPRESSION: NO ACUTE RADIOGRAPHIC FINDING IN THE CHEST. Lumbar Spine CT 05/11/19 19:18 IMPRESSION: 1. Acute L3 compression fracture without retropulsion. 2. Prior kyphoplasty of L1 and L4. Assessment and Plan - Diagnosis (1) Rapid atrial fibrillation Is this a current diagnosis for this admission?: Yes Plan: We will put her on a long-acting Cardizem this morning and her heart rate and blood pressure have tolerated it. Her chads vASC score is 2, only because of her age. She could be considered as a candidate for anticoagulation, but I am not sure if she is going to be agreeable to that. (2) Lumbar compression fracture Qualifiers: Encounter type: initial encounter Lumbar vertebra fracture level: L3 Qualified Code(s): S32.030A - Wedge compression fracture of third lumbar vertebra, initial encounter for closed fracture Is this a current diagnosis for this admission?: Yes Plan: We will try pain control and she apparently has a back brace at home but her daughters can bring in. Physical therapy saw her today and recommended residential facility placement for rehab. I prepared the patient for that possibility as she seems agreeable. - Time Time Spent with patient: 15-24 minutes
[2019-05-14] MEDS: HEPARIN SOD (PORCINE) 5,000 UNIT/ML 1 ML VIAL SUBCUT SCH ×3 (05:13→21:07)
[2019-05-14] MEDS: DILTIAZEM HCL 120 MG CAP.SR.24H PO SCH (09:56)
[2019-05-14] MEDS: DOCUSATE SODIUM 100 MG CAPSULE PO SCH ×2 (10:01→18:04)
--- NOTE | 2019-05-14 13:04 | Progress Note Acknowledgement ---
Progress Note Acknowledgement Progess Note Acknowledgement: I, the undersigned member of the medical staff with appropriate privileges and with supervisory authority over [ PAC ], a dependent practice allied health professional, acknowledge that I have reviewed the progress notes entered on this patient, and in my professional judgment believe that the assessment made and/or any care evidenced was appropriate
--- NOTE | 2019-05-14 13:13 | PDOC PROGRESS REPORT ---
Subjective Progress Note for:: 05/14/19 Subjective:: 84-year-old female admitted through the emergency room for acute on chronic back pain and atrial fib. She has a history of previous compression fractures at L1 and L4 which had kyphoplasty done in [place] patient comes in now with cute lumbar pain. Patient has a long history of atrial fib is intolerant of beta-blockers. Patient refuses anticoagulants. Reason For Visit: RAPID ATRIAL FIBRILATION,LUMBAR COMPRESSION Physical Exam Vital Signs: Temp Pulse Resp BP Pulse Ox 98.1 F 95 18 105/61 95 05/14/19 08:06 05/14/19 08:06 05/14/19 08:06 05/14/19 08:06 05/14/19 08:06 Intake & Output 05/13/19 05/14/19 05/15/19 06:59 06:59 06:59 Intake Total 852 1590 Output Total 1500 2175 Balance -648 -585 Weight 68.2 kg 71.2 kg General appearance: PRESENT: mild distress, other - She has a lot of back pain w ith any movement been in bed Respiratory exam: PRESENT: clear to auscultation william. ABSENT: rales, rhonchi, wheezes Cardiovascular exam: PRESENT: irregular rhythm Neurological exam: PRESENT: alert, awake, oriented to person, oriented to place, oriented to time, oriented to situation, CN II-XII grossly intact. ABSENT: motor sensory deficit Psychiatric exam: PRESENT: appropriate affect, normal mood. ABSENT: homicidal ideation, suicidal ideation Results Laboratory Results: 05/12/19 04:06 05/12/19 04:06 05/11/19 18:10 Clean Catch Midstream Urine Culture - Final Enterococcus Faecalis(Group D) 05/11/19 15:30 Troponin I < 0.012 Impressions: Chest X-Ray 05/11/19 19:18 IMPRESSION: NO ACUTE RADIOGRAPHIC FINDING IN THE CHEST. Lumbar Spine CT 05/11/19 19:18 IMPRESSION: 1. Acute L3 compression fracture without retropulsion. 2. Prior kyphoplasty of L1 and L4. Assessment and Plan - Diagnosis (1) Lumbar compression fracture Qualifiers: Encounter type: initial encounter Lumbar vertebra fracture level: L3 Qualified Code(s): S32.030A - Wedge compression fracture of third lumbar vertebra, initial encounter for closed fracture Is this a current diagnosis for this admission?: Yes Plan: We will try pain control and she apparently has a back brace at home but her daughters can bring in. Physical therapy saw her today and recommended assisted facility placement for rehab. I prepared the patient for that possibility as she seems agreeable. 05/14/2019 discussed with patient the possibility of a pain consult. Patient has had kyphoplasty done in [place] at L1 and L4 in the past. Will consult pain management for possible kyphoplasty at L3 (2) Rapid atrial fibrillation Is this a current diagnosis for this admission?: Yes Plan: We will put her on a long-acting Cardizem this morning and her heart rate and blood pressure have tolerated it. Her chads vASC score is 2, only because of her age. She could be considered as a candidate for anticoagulation, but I am not sure if she is going to be agreeable to that. 05/14/2019 patient is currently getting Cardizem CD 120 mg daily (3) Urinary tract infection Qualifiers: Urinary tract infection type: acute cystitis Hematuria presence: with hematuria Qualified Code(s): N30.01 - Acute cystitis with hematuria Is this a current diagnosis for this admission?: Yes Plan: 05/14/2019 patient's urine grew out enterococcus faecalis. Patient is allergic to no antibiotics will place her on amoxicillin 250 3 times daily for 7 days - Time Time Spent with patient: 35 or more minutes - Patient is discussing actually going to rehab for physical therapy. Patient will seen by pain management prior to making that decision
[2019-05-14] MEDS: AMOXICILLIN TRIHYD 250 MG CAPSULE PO SCH ×2 (15:29→21:12)
--- NOTE | 2019-05-14 22:06 | PDOC CONSULTATION ---
Consultation Consult Date: 05/14/19 Provider Consulted: JEFRY VELAZQUEZ Consult reason:: compression fracture History of Present Illness Admission Date/PCP: 05/11/19 21:14 Patient complains of: low back pain History of Present Illness: HUGH MARINO is a 84 year old female admitted for acute back pain s/p fall. Hx of osteoporosis and previous fractures treated by kyphoplasty November 2018 while living in [place], [place]. She reports successful kyphoplasty alleviating her pain at that time. Over this past weekend she had bent over to pick something up, fall is uncertain per pt's memory (mild altered mental/memory status d/t current UTI). Pt notes prior to the fall she was independent and functional/active. Since the incident she has not been able to walk or move; laying flat is most comfortable for her. Denies weakness/foot drop, saddle anesthesia, b/b dysfunction/incontinence, radicular sx of parasthesias. Pain is focused more left of axial lumbosacral spine. She does not want medication management, but would be interested in repeat kyphoplasty for pain relief. Past Medical History Cardiac Medical History: Reports: Atrial Fibrillation Endocrine Medical History: Reports: Other - Osteoporosis Musculoskeltal Medical History: Reports: Other - Multiple compression fractures of the spine Past Surgical History Past Surgical History: Reports: Other - Kyphoplasty L1 and L4 November 2018 Social History Lives with: Family Smoking Status: Never Smoker Frequency of Alcohol Use: None Hx Recreational Drug Use: No Drugs: None - Advance Directive Resuscitation Status: Full Code Family History Family History: Arthritis, Hypertension Parental Family History Reviewed: No Children Family History Reviewed: No Sibling(s) Family History Reviewed.: No Medication/Allergy Home Medications: Cephalexin Monohydrate [Keflex 500 mg Capsule] 500 mg PO BID 7 Days #14 capsule MDD FILLED 05/10 FOR 7 DAY SUPPLY 05/08/19 Ciprofloxacin HCl/Dexameth [Ciprodex Otic Suspension 7.5 ml Bottle] 4 drop AD BID 05/12/19 Allergies/Adverse Reactions: No Known Allergies Allergy (Verified 05/11/19 13:21) Review of Systems Constitutional: PRESENT: as per HPI Musculoskeletal: PRESENT: as per HPI Neurological: PRESENT: as per HPI Physical Exam Vital Signs: Temp Pulse Resp BP Pulse Ox 98.1 F 109 H 18 97/61 L 93 05/14/19 15:30 05/14/19 19:00 05/14/19 15:30 05/14/19 15:30 05/14/19 15:30 General appearance: PRESENT: no acute distress, cooperative, well-developed, well-nourished Head exam: PRESENT: atraumatic, normocephalic Eye exam: PRESENT: EOMI. ABSENT: conjunctival injection, scleral icterus Neck exam: PRESENT: other - grossly full CROM Respiratory exam: PRESENT: clear to auscultation william, unlabored Cardiovascular exam: PRESENT: RRR Vascular exam: PRESENT: other - (-)edema. ABSENT: pallor GI/Abdominal exam: PRESENT: normal bowel sounds Extremities exam: PRESENT: full ROM Musculoskeletal exam: PRESENT: other - (+)TTP axial mid/lower lumbar spine and left of midline/sacral region. ABSENT: ambulatory Neurological exam: PRESENT: alert, altered, awake, oriented to person, oriented to place, oriented to time, oriented to situation, CN II-XII grossly intact, other - moving limbs w/o difficulty; strength +2 b/l EHL and dorsi and plantar flexion; tactile sensation intact BLE Psychiatric exam: PRESENT: appropriate affect, normal mood Skin exam: ABSENT: abrasion Additional comments: Patient's [id number] and grandson present for appt today Results Laboratory Results: Impressions: Lumbar Spine CT 05/11/19 19:18 IMPRESSION: 1. Acute L3 compression fracture without retropulsion. 2. Prior kyphoplasty of L1 and L4. Assessment & Plan - Diagnosis (1) Lumbar compression fracture Qualifiers: Encounter type: initial encounter Lumbar vertebra fracture level: L3 Qualified Code(s): S32.030A - Wedge compression fracture of third lumbar vertebra, initial encounter for closed fracture Is this a current diagnosis for this admission?: Yes - Plan Summary Plan Summary: 80yo female with (+)PMHx osteoporosis and previous compression fracture lumbar w/kyphoplasty. Recent fall and acute and debilitating back pain leading to hospitalization. Will order MRI Lumbar and Sacrum to evaluate for further fractures and evaluate chronicity vs acutity. If acute compression deformities, consider kyphoplasty acute fractures. Pt declines medication management.
[2019-05-15] MEDS: HEPARIN SOD (PORCINE) 5,000 UNIT/ML 1 ML VIAL SUBCUT SCH ×3 (05:40→21:52)
[2019-05-15] MEDS: AMOXICILLIN TRIHYD 250 MG CAPSULE PO SCH ×3 (05:42→22:38)
[2019-05-15] MEDS: DOCUSATE SODIUM 100 MG CAPSULE PO SCH ×2 (09:46→17:35)
--- NOTE | 2019-05-15 10:09 | RADIOLOGY REPORT (SQ) ---
EXAM DESCRIPTION: MRI LUMBAR SPINE WITHOUT COMPLETED DATE/TIME: 05/14/2019 10:26 pm REASON FOR STUDY: mri lumbar sacrum without contrast chronic back pa COMPARISON: 05/11/2019 TECHNIQUE: Sagittal and Axial imaging includes T1, T2, STIR and gradient echo sequences. Coronal T2/ HASTE imaging. LIMITATIONS: None. FINDINGS: VISUALIZED UPPER ABDOMEN: Limited evaluation. No acute or suspicious findings suggested. SEGMENTATION: No transitional anatomy. The lowest well-developed disc space is labeled L5-S1. ALIGNMENT: Anatomic. VERTEBRAE: Intact. BONE MARROW: Evidence of prior kyphoplasty within the L1 and L4 vertebral bodies. Mild residual incr eased STIR signal within the L1 vertebral body. Additionally there is superior endplate edema with m ild superior endplate compression deformities involving L2 and L3. No significant osseous retropulsi on. . DISC SIGNAL: Lower lumbar disc desiccation. POSTERIOR ELEMENTS: Generally intact. Lower lumbar facet arthropathy. No definite pars defect. HARDWARE: Kyphoplasty cement CORD AND CONUS: Normal in size and signal intensity. Conus medullaris terminates at L2-3 disc space. SOFT TISSUES: No aortic aneurysm seen. No bulky retroperitoneal adenopathy or mass. No paraspinal mas s or fluid. Small right renal cysts. L1-L2: Evidence of prior kyphoplasty within the L1. There is no significant spinal canal stenosis or neural foraminal narrowing. L2-L3: Mild superior endplate compression deformity with approximately 10% central height loss. Ther e is increased STIR signal compatible with edema. No retropulsion. Mild circumferential disc bulge without significant spinal canal stenosis or neural foraminal narrowing. Facet arthropathy noted. L3-L4: Mild superior endplate compression deformity with approximately 20% central height loss. Ther e is Increased STIR signal compatible with edema. No significant retropulsion. No significant spina l canal stenosis or neural foraminal narrowing. L4-L5: Evidence of prior L4 kyphoplasty. Mild disc desiccation with circumferential disc bulge move mild spinal canal stenosis secondary to facet hypertrophy and disc bulge. No high-grade neural jennifer inal narrowing. L5-S1: No significant spinal stenosis or exit foraminal stenosis. LOWER THORACIC: Incompletely imaged. No stenosis seen. SACRUM: Visualized upper sacrum intact. OTHER: No other significant findings. IMPRESSION: 1. Superior endplate compression deformities with mild edema involving the L2 and L3 ve rtebral bodies. No significant retropulsion. These would be amenable to kyphoplasty if patient is s ymptomatic. 2. Evidence of prior L1 and L4 kyphoplasty. 3. Additional multilevel degenerative changes without high-grade spinal canal stenosis or neural for aminal narrowing as detailed above. TECHNICAL DOCUMENTATION: JOB ID: [id number] [facility]- All Rights Reserved Reading location - IP/workstation name: [email or web address]
[2019-05-15] MEDS: DILTIAZEM HCL 120 MG CAP.SR.24H PO SCH ×2 (10:30→22:38)
--- NOTE | 2019-05-15 14:35 | PDOC PROGRESS REPORT ---
Subjective Progress Note for:: 05/15/19 Subjective:: 84-year-old female admitted through the emergency room for acute on chronic back pain and atrial fib. She has a history of previous compression fractures at L1 and L4 which had kyphoplasty done in [place] patient comes in now with cute lumbar pain. Patient has a long history of atrial fib is intolerant of beta-blockers. Patient refuses anticoagulants. 05 15 19 patient was seen by pain management yesterday MRI scan was ordered, appears to show mild edema involving the endplates no significant retropulsion of the vertebral body. Patient will discuss this with pain management concerning kyphoplasty Reason For Visit: RAPID ATRIAL FIBRILATION,LUMBAR COMPRESSION Physical Exam Vital Signs: Temp Pulse Resp BP Pulse Ox 98.5 F 120 H 16 92/57 L 92 05/15/19 12:38 05/15/19 12:38 05/15/19 12:38 05/15/19 12:38 05/15/19 12:38 Intake & Output 05/14/19 05/15/19 05/16/19 06:59 06:59 06:59 Intake Total 1590 1780 Output Total 2175 500 Balance -585 1280 Weight 71.2 kg 67.8 kg General appearance: PRESENT: no acute distress Respiratory exam: PRESENT: clear to auscultation william. ABSENT: rales, rhonchi, wheezes Cardiovascular exam: PRESENT: RRR. ABSENT: diastolic murmur, rubs, systolic murmur Neurological exam: PRESENT: alert, awake, oriented to person, oriented to place, oriented to time, oriented to situation, CN II-XII grossly intact. ABSENT: motor sensory deficit Psychiatric exam: PRESENT: appropriate affect, normal mood, other - Patient in good spirits. ABSENT: homicidal ideation, suicidal ideation Results Laboratory Results: 05/12/19 04:06 05/12/19 04:06 05/11/19 18:10 Clean Catch Midstream Urine Culture - Final Enterococcus Faecalis(Group D) 05/11/19 15:30 Troponin I < 0.012 Impressions: Chest X-Ray 05/11/19 19:18 IMPRESSION: NO ACUTE RADIOGRAPHIC FINDING IN THE CHEST. Lumbar Spine CT 05/11/19 19:18 IMPRESSION: 1. Acute L3 compression fracture without retropulsion. 2. Prior kyphoplasty of L1 and L4. Lumbar Spine MRI 05/14/19 00:00 IMPRESSION: 1. Superior endplate compression deformities with mild edema involving the L2 and L3 vertebral bodies. No significant retropulsion. These would be amenable to kyphoplasty if patient is symptomatic. 2. Evidence of prior L1 and L4 kyphoplasty. 3. Additional multilevel degenerative changes without high-grade spinal canal stenosis or neural foraminal narrowing as detailed above. Assessment and Plan - Diagnosis (1) Lumbar compression fracture Qualifiers: Encounter type: initial encounter Lumbar vertebra fracture level: L3 Qualified Code(s): S32.030A - Wedge compression fracture of third lumbar vertebra, initial encounter for closed fracture Is this a current diagnosis for this admission?: Yes Plan: We will try pain control and she apparently has a back brace at home but her daughters can bring in. Physical therapy saw her today and recommended [facility] for rehab. I prepared the patient for that possibility as she seems agreeable. 05/14/2019 discussed with patient the possibility of a pain consult. Patient has had kyphoplasty done in [place] at L1 and L4 in the past. Will consult pain management for possible kyphoplasty at L3 05/15/2019 MRI of the lumbar spine has been completed. Pain management will decide whether or not kyphoplasty is indicated patient has a great deal of pain with any kind of movement secondary to compression fracture. Patient is only using Toradol for pain management (2) Rapid atrial fibrillation Is this a current diagnosis for this admission?: Yes Plan: We will put her on a long-acting Cardizem this morning and her heart rate and blood pressure have tolerated it. Her chads vASC score is 2, only because of her age. She could be considered as a candidate for anticoagulation, but I am not sure if she is going to be agreeable to that. 05/14/2019 patient is currently getting Cardizem CD 120 mg daily 05/15/2019 patient's heart rate is averaging around 110. Will increase Cardizem CD to twice daily dosing (3) Urinary tract infection Qualifiers: Urinary tract infection type: acute cystitis Hematuria presence: with hematuria Qualified Code(s): N30.01 - Acute cystitis with hematuria Is this a current diagnosis for this admission?: Yes Plan: 05/14/2019 patient's urine grew out enterococcus faecalis. Patient is allergic to no antibiotics will place her on amoxicillin 250 3 times daily for 7 days 05/15/2019 patient currently on amoxicillin 250 3 times daily, day 2 - Time Time Spent with patient: 25-34 minutes
[2019-05-15] MEDS ORDERED: HYDROMORPHONE HCL 2 MG TABLET PO PRN (17:55)
--- NOTE | 2019-05-15 22:16 | PDOC PROGRESS REPORT ---
Subjective Progress Note for:: 05/15/19 Subjective:: MRI Lumbar results rvd w/pt. She has two new compression fractures, L2 and L3. She notes no pain with laying still in bed, but excruciating if she tries to get up and move, ie with PT or if trying to get up and use restroom. Pt declines medication management. Reason For Visit: LUMBAR COMPRESSION FRACTURES Physical Exam Vital Signs: Temp Pulse Resp BP Pulse Ox 97.9 F 95 16 92/61 L 95 05/15/19 15:15 05/15/19 19:00 05/15/19 15:15 05/15/19 15:15 05/15/19 15:15 General appearance: PRESENT: no acute distress, cooperative, well-developed, well-nourished, other - laying supine in bed, knees bent and slightly rolled to left side Head exam: PRESENT: atraumatic, normocephalic Eye exam: PRESENT: EOMI. ABSENT: conjunctival injection Respiratory exam: PRESENT: unlabored Musculoskeletal exam: ABSENT: ambulatory Neurological exam: PRESENT: alert, awake, oriented to person, oriented to place, oriented to time, oriented to situation, CN II-XII grossly intact Psychiatric exam: PRESENT: appropriate affect, normal mood Results Laboratory Results: Impressions: Lumbar Spine MRI 05/14/19 00:00 IMPRESSION: 1. Superior endplate compression deformities with mild edema involving the L2 and L3 vertebral bodies. No significant retropulsion. These would be amenable to kyphoplasty if patient is symptomatic. 2. Evidence of prior L1 and L4 kyphoplasty. 3. Additional multilevel degenerative changes without high-grade spinal canal stenosis or neural foraminal narrowing as detailed above. 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 She is interested in kyphoplasty, as she has had it done previously and was successful. However, she also has an active UTI with enterococcus faecalis and is on amoxicillin 250mg TID for the next 7-days. We will plan for Kyphoplasty 2- level next Monday05/21/19; plan to repeat UA Monday or Monday, 05/20-05/21, to improvement in infection prior to kyphplasty. I have also added an order of Dilaudid for prn use, although I doubt pt will be inclined to use it as she has not been interested in medication management thus far.
[2019-05-16] MEDS: HEPARIN SOD (PORCINE) 5,000 UNIT/ML 1 ML VIAL SUBCUT SCH ×3 (05:23→21:18)
[2019-05-16] MEDS: AMOXICILLIN TRIHYD 250 MG CAPSULE PO SCH ×3 (05:46→22:05)
[2019-05-16] MEDS: DILTIAZEM HCL 120 MG CAP.SR.24H PO SCH ×2 (10:08→22:05)
[2019-05-16] MEDS: DOCUSATE SODIUM 100 MG CAPSULE PO SCH ×2 (10:09→17:15)
--- NOTE | 2019-05-16 10:56 | PDOC PROGRESS REPORT ---
Subjective Progress Note for:: 05/16/19 Subjective:: 84-year-old female admitted through the emergency room for acute on chronic back pain and atrial fib. She has a history of previous compression fractures at L1 and L4 which had kyphoplasty done in [place] patient comes in now with cute lumbar pain. Patient has a long history of atrial fib is intolerant of beta-blockers. Patient refuses anticoagulants. 05 15 19 patient was seen by pain management yesterday MRI scan was ordered, appears to show mild edema involving the endplates no significant retropulsion of the vertebral body. Patient will discuss this with pain management concerning kyphoplasty 05/16/2019 has 2 compression fractures L2 and L3 patient is scheduled for kyphoplasty at these 2 levels on Monday, May 21. We will continue working with physical therapy until then, continue antibiotics UTI as well, continue Cardizem for atrial fib Reason For Visit: RAPID ATRIAL FIBRILATION,LUMBAR COMPRESSION Physical Exam Vital Signs: Temp Pulse Resp BP Pulse Ox 97.6 F 92 18 108/61 93 05/16/19 06:54 05/16/19 06:54 05/16/19 06:54 05/16/19 06:54 05/16/19 06:54 Intake & Output 05/15/19 05/16/19 05/17/19 06:59 06:59 06:59 Intake Total 1780 660 Output Total 500 1 Balance 1280 659 Weight 67.8 kg 67.9 kg General appearance: PRESENT: no acute distress, other - As long as patient is lying still in bed she has no back pain Respiratory exam: PRESENT: clear to auscultation william. ABSENT: rales, rhonchi, wheezes Cardiovascular exam: PRESENT: irregular rhythm Neurological exam: PRESENT: alert, awake, oriented to person, oriented to place, oriented to time, oriented to situation, CN II-XII grossly intact, other - Patient has no bowel or bladder incontinence. ABSENT: motor sensory deficit Psychiatric exam: PRESENT: appropriate affect, normal mood. ABSENT: homicidal ideation, suicidal ideation Results Laboratory Results: 05/12/19 04:06 05/12/19 04:06 05/11/19 15:30 Troponin I < 0.012 Impressions: Chest X-Ray 05/11/19 19:18 IMPRESSION: NO ACUTE RADIOGRAPHIC FINDING IN THE CHEST. Lumbar Spine CT 05/11/19 19:18 IMPRESSION: 1. Acute L3 compression fracture without retropulsion. 2. Prior kyphoplasty of L1 and L4. Lumbar Spine MRI 05/14/19 00:00 IMPRESSION: 1. Superior endplate compression deformities with mild edema involving the L2 and L3 vertebral bodies. No significant retropulsion. These would be amenable to kyphoplasty if patient is symptomatic. 2. Evidence of prior L1 and L4 kyphoplasty. 3. Additional multilevel degenerative changes without high-grade spinal canal stenosis or neural foraminal narrowing as detailed above. Assessment and Plan - Diagnosis (1) Lumbar compression fracture Qualifiers: Encounter type: initial encounter Lumbar vertebra fracture level: L3 Qualified Code(s): S32.030A - Wedge compression fracture of third lumbar vertebra, initial encounter for closed fracture Is this a current diagnosis for this admission?: Yes Plan: We will try pain control and she apparently has a back brace at home but her daughters can bring in. Physical therapy saw her today and [facility]. I prepared the patient for that possibility as she seems agreeable. 05/14/2019 discussed with patient the possibility of a pain consult. Patient has had kyphoplasty done in [place] at L1 and L4 in the past. Will consult pain management for possible kyphoplasty at L3 05/15/2019 MRI of the lumbar spine has been completed. Pain management will decide whether or not kyphoplasty is indicated patient has a great deal of pain with any kind of movement secondary to compression fracture. Patient is only using Toradol for pain management 05/16/2019 patient is to compression fractures L2 and L3. patient is a good candidate for kyphoplasty at these levels patient is on the schedule for May 21.. Until then work with physical therapy (2) Rapid atrial fibrillation Is this a current diagnosis for this admission?: Yes Plan: We will put her on a long-acting Cardizem this morning and her heart rate and blood pressure have tolerated it. Her chads vASC score is 2, only because of her age. She could be considered as a candidate for anticoagulation, but I am not sure if she is going to be agreeable to that. 05/14/2019 patient is currently getting Cardizem CD 120 mg daily 05/15/2019 patient's heart rate is averaging around 110. Will increase Cardizem CD to twice daily dosing 05/16/2019 Cardizem is now 120 CD twice daily her heart rate has responded quite well she is now in the 80s to 90s. Patient is asymptomatic from her atrial fib. She is still maintaining a good blood pressure (3) Urinary tract infection Qualifiers: Urinary tract infection type: acute cystitis Hematuria presence: with hematuria Qualified Code(s): N30.01 - Acute cystitis with hematuria Is this a current diagnosis for this admission?: Yes Plan: 05/14/2019 patient's urine grew out enterococcus faecalis. Patient is allergic to no antibiotics will place her on amoxicillin 250 3 times daily for 7 days 05/15/2019 patient currently on amoxicillin 250 3 times daily, day 2 1918-day 3 of amoxicillin continue this through the weekend. Patient has no symptoms from her UTI. This may be a contaminant. - Time Time Spent with patient: 25-34 minutes
[2019-05-17] MEDS: AMOXICILLIN TRIHYD 250 MG CAPSULE PO SCH ×3 (05:48→21:12)
[2019-05-17] MEDS: HEPARIN SOD (PORCINE) 5,000 UNIT/ML 1 ML VIAL SUBCUT SCH ×3 (05:48→21:12)
[2019-05-17] MEDS: DOCUSATE SODIUM 100 MG CAPSULE PO SCH ×2 (09:15→17:14)
[2019-05-17] MEDS: IBUPROFEN 400 MG TABLET PO PRN (09:15)
[2019-05-17] MEDS: DILTIAZEM HCL 120 MG CAP.SR.24H PO SCH ×2 (09:15→21:12)
--- NOTE | 2019-05-17 10:11 | PDOC PROGRESS REPORT ---
Subjective Progress Note for:: 05/17/19 Subjective:: 84-year-old female admitted through the emergency room for acute on chronic back pain and atrial fib. She has a history of previous compression fractures at L1 and L4 which had kyphoplasty done in [place] patient comes in now with cute lumbar pain. Patient has a long history of atrial fib is intolerant of beta-blockers. Patient refuses anticoagulants. 05 15 19 patient was seen by pain management yesterday MRI scan was ordered, appears to show mild edema involving the endplates no significant retropulsion of the vertebral body. Patient will discuss this with pain management concerning kyphoplasty 05/16/2019 has 2 compression fractures L2 and L3 patient is scheduled for kyphoplasty at these 2 levels on Monday, May 21. We will continue working with physical therapy until then, continue antibiotics UTI as well, continue Cardizem for atrial fib 05/17/2019 patient is asking for her pain medicine now when she gets up and moves around the room patient is just going to do her physical therapy herself since she can never seem to get coordinated with the hospital therapist. Reason For Visit: RAPID ATRIAL FIBRILATION,LUMBAR COMPRESSION Physical Exam Vital Signs: Temp Pulse Resp BP Pulse Ox 98.0 F 112 H 18 101/59 L 95 05/17/19 07:06 05/17/19 07:06 05/17/19 07:06 05/17/19 07:06 05/17/19 07:06 Intake & Output 05/16/19 05/17/19 05/18/19 06:59 06:59 06:59 Intake Total 660 540 Output Total 1 Balance 659 540 Weight 67.9 kg 67.6 kg General appearance: PRESENT: no acute distress Respiratory exam: PRESENT: clear to auscultation william. ABSENT: rales, rhonchi, w heezes Cardiovascular exam: PRESENT: irregular rhythm Neurological exam: PRESENT: alert, awake, oriented to person, oriented to place, oriented to time, oriented to situation, CN II-XII grossly intact. ABSENT: motor sensory deficit Psychiatric exam: PRESENT: appropriate affect, normal mood, other - waiting to get the kyphoplasty done. ABSENT: homicidal ideation, suicidal ideation Results Laboratory Results: 05/12/19 04:06 05/12/19 04:06 05/11/19 15:30 Troponin I < 0.012 Impressions: Chest X-Ray 05/11/19 19:18 IMPRESSION: NO ACUTE RADIOGRAPHIC FINDING IN THE CHEST. Lumbar Spine CT 05/11/19 19:18 IMPRESSION: 1. Acute L3 compression fracture without retropulsion. 2. Prior kyphoplasty of L1 and L4. Lumbar Spine MRI 05/14/19 00:00 IMPRESSION: 1. Superior endplate compression deformities with mild edema involving the L2 and L3 vertebral bodies. No significant retropulsion. These would be amenable to kyphoplasty if patient is symptomatic. 2. Evidence of prior L1 and L4 kyphoplasty. 3. Additional multilevel degenerative changes without high-grade spinal canal stenosis or neural foraminal narrowing as detailed above. Assessment and Plan - Diagnosis (1) Lumbar compression fracture Qualifiers: Encounter type: initial encounter Lumbar vertebra fracture level: L3 Qualified Code(s): S32.030A - Wedge compression fracture of third lumbar vertebra, initial encounter for closed fracture Is this a current diagnosis for this admission?: Yes Plan: We will try pain control and she apparently has a back brace at home but her daughters can bring in. Physical therapy saw her today and recommended [facility] facility placement for rehab. I prepared the patient for that possibility as she seems agreeable. 05/14/2019 discussed with patient the possibility of a pain consult. Patient has had kyphoplasty done in [place] at L1 and L4 in the past. Will consult pain management for possible kyphoplasty at L3 05/15/2019 MRI of the lumbar spine has been completed. Pain management will decide whether or not kyphoplasty is indicated patient has a great deal of pain with any kind of movement secondary to compression fracture. Patient is only using Toradol for pain management 05/16/2019 patient is to compression fractures L2 and L3. patient is a good candidate for kyphoplasty at these levels patient is on the schedule for May 21.. Until then work with physical therapy 05/17/2019 no change in pain no neurologic deficit (2) Rapid atrial fibrillation Is this a current diagnosis for this admission?: Yes Plan: We will put her on a long-acting Cardizem this morning and her heart rate and blood pressure have tolerated it. Her chads vASC score is 2, only because of her age. She could be considered as a candidate for anticoagulation, but I am not sure if she is going to be agreeable to that. 05/14/2019 patient is currently getting Cardizem CD 120 mg daily 05/15/2019 patient's heart rate is averaging around 110. Will increase Cardizem CD to twice daily dosing 05/16/2019 Cardizem is now 120 CD twice daily her heart rate has responded quite well she is now in the 80s to 90s. Patient is asymptomatic from her atrial fib. She is still maintaining a good blood pressure 05/17/2019 heart rate is still doing well on the increase in Cardizem anywhere from 80s up to the low 100s, improvement. Blood pressures unchanged and stable (3) Urinary tract infection Qualifiers: Urinary tract infection type: acute cystitis Hematuria presence: with hematuria Qualified Code(s): N30.01 - Acute cystitis with hematuria Is this a current diagnosis for this admission?: Yes Plan: 05/14/2019 patient's urine grew out enterococcus faecalis. Patient is allergic to no antibiotics will place her on amoxicillin 250 3 times daily for 7 days 05/15/2019 patient currently on amoxicillin 250 3 times daily, day 2 -day 3 of amoxicillin continue this through the weekend. Patient has no symptoms from her UTI. This may be a contaminant. 05/17/2019 she states she may be voiding less now than she was, so she may have been somewhat symptomatic from her UTI. Continue the p.o. amoxicillin through the weekend, recheck a urine on Monday 48 hours from now. - Time Time Spent with patient: 25-34 minutes
[2019-05-18] MEDS: HEPARIN SOD (PORCINE) 5,000 UNIT/ML 1 ML VIAL SUBCUT SCH ×3 (05:37→21:08)
[2019-05-18] MEDS: AMOXICILLIN TRIHYD 250 MG CAPSULE PO SCH ×3 (05:39→21:08)
[2019-05-18] MEDS: IBUPROFEN 400 MG TABLET PO PRN (05:39)
[2019-05-18] MEDS: DOCUSATE SODIUM 100 MG CAPSULE PO SCH ×2 (09:21→17:12)
[2019-05-18] MEDS: DILTIAZEM HCL 120 MG CAP.SR.24H PO SCH ×2 (09:21→21:08)
--- NOTE | 2019-05-18 13:16 | PDOC PROGRESS REPORT ---
Subjective Progress Note for:: 05/18/19 Subjective:: 84-year-old female admitted through the emergency room for acute on chronic back pain and atrial fib. She has a history of previous compression fractures at L1 and L4 which had kyphoplasty done in [place] patient comes in now with cute lumbar pain. Patient has a long history of atrial fib is intolerant of beta-blockers. Patient refuses anticoagulants. 05 15 19 patient was seen by pain management yesterday MRI scan was ordered, appears to show mild edema involving the endplates no significant retropulsion of the vertebral body. Patient will discuss this with pain management concerning kyphoplasty 05/16/2019 has 2 compression fractures L2 and L3 patient is scheduled for kyphoplasty at these 2 levels on Monday, May 21. We will continue working with physical therapy until then, continue antibiotics UTI as well, continue Cardizem for atrial fib 05/17/2019 patient is asking for her pain medicine now when she gets up and moves around the room patient is just going to do her physical therapy herself since she can never seem to get coordinated with the hospital therapist. 05/18/2019 when I made rounds this morning patient was sitting up in a chair.. Patient states that she does feel some better when she is up and moving she has pain medicine before she does that. I have encouraged her to try to do that about twice a day. Reason For Visit: RAPID ATRIAL FIBRILATION,LUMBAR COMPRESSION Physical Exam Vital Signs: Temp Pulse Resp BP Pulse Ox 97.6 F 87 16 106/72 98 05/18/19 07:26 05/18/19 07:26 05/18/19 07:26 05/18/19 07:26 05/18/19 07:26 Intake & Output 05/17/19 05/18/19 05/19/19 06:59 06:59 06:59 Intake Total 540 1140 Output Total 300 Balance 540 840 Weight 67.6 kg 68 kg General appearance: PRESENT: mild distress Respiratory exam: PRESENT: clear to auscultation william. ABSENT: rales, rhonchi, wheezes Cardiovascular exam: PRESENT: RRR. ABSENT: diastolic murmur, rubs, systolic murmur Neurological exam: PRESENT: alert, awake, oriented to person, oriented to place, oriented to time, oriented to situation, CN II-XII grossly intact. ABSENT: motor sensory deficit Psychiatric exam: PRESENT: appropriate affect, normal mood, other - Talkative anxious to go ahead and get the procedure done on Monday. ABSENT: homicidal ideation, suicidal ideation Results Laboratory Results: 05/12/19 04:06 05/12/19 04:06 05/11/19 15:30 Troponin I < 0.012 Impressions: Chest X-Ray 05/11/19 19:18 IMPRESSION: NO ACUTE RADIOGRAPHIC FINDING IN THE CHEST. Lumbar Spine CT 05/11/19 19:18 IMPRESSION: 1. Acute L3 compression fracture without retropulsion. 2. Prior kyphoplasty of L1 and L4. Lumbar Spine MRI 05/14/19 00:00 IMPRESSION: 1. Superior endplate compression deformities with mild edema involving the L2 and L3 vertebral bodies. No significant retropulsion. These would be amenable to kyphoplasty if patient is symptomatic. 2. Evidence of prior L1 and L4 kyphoplasty. 3. Additional multilevel degenerative changes without high-grade spinal canal stenosis or neural foraminal narrowing as detailed above. Assessment and Plan - Diagnosis (1) Lumbar compression fracture Qualifiers: Encounter type: initial encounter Lumbar vertebra fracture level: L3 Qualified Code(s): S32.030A - Wedge compression fracture of third lumbar vertebra, initial encounter for closed fracture Is this a current diagnosis for this admission?: Yes Plan: We will try pain control and she apparently has a back brace at home but her daughters can bring in. Physical therapy saw her today and recommended [facility] for [facility]. I prepared the patient for that possibility as she seems agreeable. 05/14/2019 discussed with patient the possibility of a pain consult. Patient has had kyphoplasty done in [place] at L1 and L4 in the past. Will consult pain management for possible kyphoplasty at L3 05/15/2019 MRI of the lumbar spine has been completed. Pain management will decide whether or not kyphoplasty is indicated patient has a great deal of pain with any kind of movement secondary to compression fracture. Patient is only using Toradol for pain management 05/16/2019 patient is to compression fractures L2 and L3. patient is a good candidate for kyphoplasty at these levels patient is on the schedule for May 21.. Until then work with physical therapy 05/17/2019 no change in pain no neurologic deficit 05/18/2019 she is still on track to have the kyphoplasty done Monday the .. Patient takes ibuprofen before she gets up and about but only 400 mg a dose (2) Rapid atrial fibrillation Is this a current diagnosis for this admission?: Yes Plan: We will put her on a long-acting Cardizem this morning and her heart rate and blood pressure have tolerated it. Her chads vASC score is 2, only because of her age. She could be considered as a candidate for anticoagulation, but I am not sure if she is going to be agreeable to that. 05/14/2019 patient is currently getting Cardizem CD 120 mg daily 05/15/2019 patient's heart rate is averaging around 110. Will increase Cardizem CD to twice daily dosing 05/16/2019 Cardizem is now 120 CD twice daily her heart rate has responded quite well she is now in the 80s to 90s. Patient is asymptomatic from her atrial fib. She is still maintaining a good blood pressure 05/17/2019 heart rate is still doing well on the increase in Cardizem anywhere from 80s up to the low 100s, improvement. Blood pressures unchanged and stable 05-18-19 at rate seems to have stabilized around 88. Patient does not complain of dizziness, shortness of breath, or chest pain (3) Urinary tract infection Qualifiers: Urinary tract infection type: acute cystitis Hematuria presence: with hematuria Qualified Code(s): N30.01 - Acute cystitis with hematuria Is this a current diagnosis for this admission?: Yes Plan: 05/14/2019 patient's urine grew out enterococcus faecalis. Patient is allergic to no antibiotics will place her on amoxicillin 250 3 times daily for 7 days 05/15/2019 patient currently on amoxicillin 250 3 times daily, day 2 -day 3 of amoxicillin continue this through the weekend. Patient has no symptoms from her UTI. This may be a contaminant. 05/17/2019 she states she may be voiding less now than she was, so she may have been somewhat symptomatic from her UTI. Continue the p.o. amoxicillin through the weekend, recheck a urine on Monday 48 hours from now. 05/18/2019 urinalysis as well as lab work is ordered for tomorrow a.m., patient is not complaining of any dysuria or incontinence - Time Time Spent with patient: 25-34 minutes
[2019-05-19] MEDS: IBUPROFEN 400 MG TABLET PO PRN ×2 (03:35→20:33)
[2019-05-19] MEDS: AMOXICILLIN TRIHYD 250 MG CAPSULE PO SCH (04:59)
[2019-05-19] MEDS: HEPARIN SOD (PORCINE) 5,000 UNIT/ML 1 ML VIAL SUBCUT SCH ×3 (05:01→22:12)
[2019-05-19 06:03] LABS: ABSOLUTE EOSINOPHILS # (AUTO) 0.1 10^3/uL (0.0-0.6); ABSOLUTE LYMPHOCYTES (AUTO) 1.1 10^3/uL (0.5-4.7); ABSOLUTE MONOCYTES (AUTO) 0.4 10^3/uL (0.1-1.4); ABSOLUTE NEUT (AUTO) 3.5 10^3/uL (1.7-8.2); BASOPHILS % (AUTO) 0.8 % (0-2); EOSINOPHILS % (AUTO) 2.4 % (0-6); HEMATOCRIT 41.8 % (36.0-47.0); HEMOGLOBIN 14.1 g/dL (12.0-15.5); MEAN CORPUSCULAR HEMOGLOBIN 30.7 pg (27.0-33.4); MEAN CORPUSCULAR HGB CONC 33.9 g/dL (32.0-36.0); MEAN CORPUSCULAR VOLUME 91 fl (80-97); MONOCYTES % (AUTO) 7.9 % (3-13); PLATELET COUNT 209 10^3/uL (150-450); RED CELL DISTRIBUTION WIDTH 13.9 % (11.5-14.0); SEGMENTED NEUTROPHILS % (AUTO) 66.9 % (42-78); TOTAL CELLS COUNTED % (AUTO) 100 %; WHITE BLOOD COUNT 5.2 10^3/uL (4.0-10.5)
[2019-05-19 06:18] LABS: ANION GAP 8 (5-19); BLOOD UREA NITROGEN 19 mg/dL (7-20); CALCIUM 9.5 mg/dL (8.4-10.2); CARBON DIOXIDE 28 mmol/L (22-30); CHLORIDE 101 mmol/L (98-107); GLUCOSE 96 mg/dL (75-110); POTASSIUM 4.6 mmol/L (3.6-5.0)
[2019-05-19 07:01] LABS: APPEARANCE,URINE SLIGHTLY-CLOUDY; BILIRUBIN,URINE NEGATIVE (NEGATIVE); COLOR,URINE YELLOW; GLUCOSE, URINE NEGATIVE (NEGATIVE); KETONES,URINE NEGATIVE (NEGATIVE); LEUKOCYTE ESTERASE,URINE NEGATIVE (NEGATIVE); NITRITE,URINE NEGATIVE (NEGATIVE); PROTEIN,URINE NEGATIVE (NEGATIVE); URINE SPECIFIC GRAVITY 1.009; UROBILINOGEN,URINE NEGATIVE mg/dL (<2.0)
[2019-05-19] MEDS: DOCUSATE SODIUM 100 MG CAPSULE PO SCH ×2 (09:28→17:19)
[2019-05-19] MEDS: DILTIAZEM HCL 120 MG CAP.SR.24H PO SCH ×2 (09:33→22:28)
--- NOTE | 2019-05-19 11:57 | PDOC PROGRESS REPORT ---
Subjective Progress Note for:: 05/19/19 Subjective:: 84-year-old female admitted through the emergency room for acute on chronic back pain and atrial fib. She has a history of previous compression fractures at L1 and L4 which had kyphoplasty done in [place] patient comes in now with cute lumbar pain. Patient has a long history of atrial fib is intolerant of beta-blockers. Patient refuses anticoagulants. 05 15 19 patient was seen by pain management yesterday MRI scan was ordered, appears to show mild edema involving the endplates no significant retropulsion of the vertebral body. Patient will discuss this with pain management concerning kyphoplasty 05/16/2019 has 2 compression fractures L2 and L3 patient is scheduled for kyphoplasty at these 2 levels on Monday, May 21. We will continue working with physical therapy until then, continue antibiotics UTI as well, continue Cardizem for atrial fib 05/17/2019 patient is asking for her pain medicine now when she gets up and moves around the room patient is just going to do her physical therapy herself since she can never seem to get coordinated with the hospital therapist. 05/18/2019 when I made rounds this morning patient was sitting up in a chair.. Patient states that she does feel some better when she is up and moving she has pain medicine before she does that. I have encouraged her to try to do that about twice a day. 05/19/2019 patient was asked me a lot of questions today about her upcoming kyphoplasty in 48 hours I have told her to write down her questions for the physician who will perform this. He will answer all of her questions about recovery length of time activities following the procedure and so forth. Patient's labs and urine appear normal she is ready for the procedure on Monday Reason For Visit: RAPID ATRIAL FIBRILATION,LUMBAR COMPRESSION Physical Exam Vital Signs: Temp Pulse Resp BP Pulse Ox 98.0 F 117 H 18 115/72 94 05/19/19 07:57 05/19/19 07:57 05/19/19 07:57 05/19/19 07:57 05/19/19 07:57 Intake & Output 05/18/19 05/19/19 05/20/19 06:59 06:59 06:59 Intake Total 1140 1625 Output Total 300 300 Balance 840 1325 Weight 68 kg 68.9 kg General appearance: PRESENT: no acute distress Respiratory exam: PRESENT: clear to auscultation william. ABSENT: rales, rhonchi, wheezes Cardiovascular exam: PRESENT: RRR. ABSENT: diastolic murmur, rubs, systolic murmur Neurological exam: PRESENT: alert, awake, oriented to person, oriented to place, oriented to time, oriented to situation, CN II-XII grossly intact. ABSENT: motor sensory deficit Psychiatric exam: PRESENT: appropriate affect, normal mood. ABSENT: homicidal ideation, suicidal ideation Results Laboratory Results: 05/19/19 05:36 05/19/19 05:36 05/19/19 05/19/19 05/19/19 05:36 05:36 06:40 WBC 5.2 RBC 4.60 Hgb 14.1 Hct 41.8 MCV 91 MCH 30.7 MCHC 33.9 RDW 13.9 Plt Count 209 Seg Neutrophils % 66.9 Sodium 136.9 L Potassium 4.6 Chloride 101 Carbon Dioxide 28 Anion Gap 8 BUN 19 Creatinine 0.67 Est GFR ( Amer) > 60 Glucose 96 Calcium 9.5 Urine Color YELLOW Urine Appearance SLIGHTLY-CLOUDY Urine pH 7.0 Ur Specific [place] 1.009 Urine Protein NEGATIVE Urine Glucose (UA) NEGATIVE Urine Ketones NEGATIVE Urine Blood NEGATIVE Urine Nitrite NEGATIVE Ur Leukocyte Esterase NEGATIVE Urine WBC (Auto) 2 Urine RBC (Auto) 1 05/11/19 15:30 Troponin I < 0.012 Impressions: Chest X-Ray 05/11/19 19:18 IMPRESSION: NO ACUTE RADIOGRAPHIC FINDING IN THE CHEST. Lumbar Spine CT 05/11/19 19:18 IMPRESSION: 1. Acute L3 compression fracture without retropulsion. 2. Prior kyphoplasty of L1 and L4. Lumbar Spine MRI 05/14/19 00:00 IMPRESSION: 1. Superior endplate compression deformities with mild edema involving the L2 and L3 vertebral bodies. No significant retropulsion. These would be amenable to kyphoplasty if patient is symptomatic. 2. Evidence of prior L1 and L4 kyphoplasty. 3. Additional multilevel degenerative changes without high-grade spinal canal stenosis or neural foraminal narrowing as detailed above. Assessment and Plan - Diagnosis (1) Lumbar compression fracture Qualifiers: Encounter type: initial encounter Lumbar vertebra fracture level: L3 Qualified Code(s): S32.030A - Wedge compression fracture of third lumbar vertebra, initial encounter for closed fracture Is this a current diagnosis for this admission?: Yes Plan: We will try pain control and she apparently has a back brace at home but her daughters can bring in. Physical therapy saw her today and recommended intermediate facility placement for rehab. I prepared the patient for that possibility as she seems agreeable. 05/14/2019 discussed with patient the possibility of a pain consult. Patient has had kyphoplasty done in [place] at L1 and L4 in the past. Will consult pain management for possible kyphoplasty at L3 05/15/2019 MRI of the lumbar spine has been completed. Pain management will decide whether or not kyphoplasty is indicated patient has a great deal of pain with any kind of movement secondary to compression fracture. Patient is only using Toradol for pain management 05/16/2019 patient is to compression fractures L2 and L3. patient is a good ca ndidate for kyphoplasty at these levels patient is on the schedule for May 21.. Until then work with physical therapy 05/17/2019 no change in pain no neurologic deficit 05/18/2019 she is still on track to have the kyphoplasty done Monday the .. Patient takes ibuprofen before she gets up and about but only 400 mg a dose 05/19/2019 patient is up and ambulatory more often now I told patient that she has a compression at 2 levels L2 and L3. L3 shows the largest amount of compr ession. Patient will find out the time she is on the schedule for Monday tomorrow. (2) Rapid atrial fibrillation Is this a current diagnosis for this admission?: Yes Plan: We will put her on a long-acting Cardizem this morning and her heart rate and blood pressure have tolerated it. Her chads vASC score is 2, only because of h er age. She could be considered as a candidate for anticoagulation, but I am not sure if she is going to be agreeable to that. 05/14/2019 patient is currently getting Cardizem CD 120 mg daily 05/15/2019 patient's heart rate is averaging around 110. Will increase Cardizem CD to twice daily dosing 05/16/2019 Cardizem is now 120 CD twice daily her heart rate has responded quite well she is now in the 80s to 90s. Patient is asymptomatic from her atrial fib. She is still maintaining a good blood pressure 05/17/2019 heart rate is still doing well on the increase in Cardizem anywhere from 80s up to the low 100s, improvement. Blood pressures unchanged and stable 9-21-19 at rate seems to have stabilized around 88. Patient does not complain of dizziness, shortness of breath, or chest pain 05/19/2019 we will repeat EKG tomorrow morning patient is not symptomatic from her atrial fib although I do see P waves on her tracing from previous studies. Patient is on Cardizem CD twice daily (3) Urinary tract infection Qualifiers: Urinary tract infection type: acute cystitis Hematuria presence: with hematuria Qualified Code(s): N30.01 - Acute cystitis with hematuria Is this a current diagnosis for this admission?: Yes Plan: 05/14/2019 patient's urine grew out enterococcus faecalis. Patient is allergic to no antibiotics will place her on amoxicillin 250 3 times daily for 7 days 05/15/2019 patient currently on amoxicillin 250 3 times daily, day 2 -day 3 of amoxicillin continue this through the weekend. Patient has no symptoms from her UTI. This may be a contaminant. 05/17/2019 she states she may be voiding less now than she was, so she may have been somewhat symptomatic from her UTI. Continue the p.o. amoxicillin through the weekend, recheck a urine on Monday 48 hours from now. 05/18/2019 urinalysis as well as lab work is ordered for tomorrow a.m., patient is not complaining of any dysuria or incontinence 05 19 19 urinalysis from this morning is normal showing no nitrates no leukocytes patient has been on amoxicillin now for 6 days will DC this today.. No indication for culture and sensitivity - Time Time Spent with patient: 25-34 minutes
[2019-05-19] MEDS ORDERED: IBUPROFEN 400 MG TABLET ONE (19:52)
[2019-05-20] MEDS: HEPARIN SOD (PORCINE) 5,000 UNIT/ML 1 ML VIAL SUBCUT SCH ×3 (06:19→21:02)
[2019-05-20] MEDS: DOCUSATE SODIUM 100 MG CAPSULE PO SCH ×2 (09:49→17:57)
[2019-05-20] MEDS: DILTIAZEM HCL 120 MG CAP.SR.24H PO SCH (09:52)
--- NOTE | 2019-05-20 11:09 | PDOC PROGRESS REPORT ---
Subjective Progress Note for:: 05/20/19 Subjective:: 84-year-old female admitted through the emergency room for acute on chronic back pain and atrial fib. She has a history of previous compression fractures at L1 and L4 which had kyphoplasty done in [place] patient comes in now with cute lumbar pain. Patient has a long history of atrial fib is intolerant of beta-blockers. Patient refuses anticoagulants. 05 15 19 patient was seen by pain management yesterday MRI scan was ordered, appears to show mild edema involving the endplates no significant retropulsion of the vertebral body. Patient will discuss this with pain management concerning kyphoplasty 05/16/2019 has 2 compression fractures L2 and L3 patient is scheduled for kyphoplasty at these 2 levels on May 21. We will continue working with physical therapy until then, continue antibiotics UTI as well, continue Cardizem for atrial fib 05/17/2019 patient is asking for her pain medicine now when she gets up and moves around the room patient is just going to do her physical therapy herself since she can never seem to get coordinated with the hospital therapist. 05/18/2019 when I made rounds this morning patient was sitting up in a chair.. Patient states that she does feel some better when she is up and moving she has pain medicine before she does that. I have encouraged her to try to do that about twice a day. 05/19/2019 patient was asked me a lot of questions today about her upcoming kyphoplasty in 48 hours I have told her to write down her questions for the physician who will perform this. He will answer all of her questions about recovery length of time activities following the procedure and so forth. Patient's labs and urine appear normal she is ready for the procedure on Monday05/20/2019 early kyphoplasty scheduled for 11 AM tomorrow by 2 levels. Patient was asking about her Cardizem will change back to a one-time dose but increase the dosage slightly Reason For Visit: RAPID ATRIAL FIBRILATION,LUMBAR COMPRESSION Physical Exam Vital Signs: Temp Pulse Resp BP Pulse Ox 97.8 F 120 H 17 106/72 92 05/20/19 07:38 05/20/19 07:38 05/20/19 07:38 05/20/19 07:38 05/20/19 07:38 Intake & Output 05/19/19 05/20/19 05/21/19 06:59 06:59 06:59 Intake Total 1625 840 Output Total 300 Balance 1325 840 Weight 68.9 kg 68.6 kg General appearance: PRESENT: no acute distress Respiratory exam: PRESENT: clear to auscultation william. ABSENT: rales, rhonchi, wheezes Cardiovascular exam: PRESENT: irregular rhythm Neurological exam: PRESENT: alert, awake, oriented to person, oriented to place, oriented to time, oriented to situation, CN II-XII grossly intact. ABSENT: motor sensory deficit Psychiatric exam: PRESENT: appropriate affect, normal mood. ABSENT: homicidal ideation, suicidal ideation Results Laboratory Results: 05/19/19 05:36 05/19/19 05:36 05/11/19 15:30 Troponin I < 0.012 Impressions: Chest X-Ray 05/11/19 19:18 IMPRESSION: NO ACUTE RADIOGRAPHIC FINDING IN THE CHEST. Lumbar Spine CT 05/11/19 19:18 IMPRESSION: 1. Acute L3 compression fracture without retropulsion. 2. Prior kyphoplasty of L1 and L4. Lumbar Spine MRI 05/14/19 00:00 IMPRESSION: 1. Superior endplate compression deformities with mild edema involving the L2 and L3 vertebral bodies. No significant retropulsion. These would be amenable to kyphoplasty if patient is symptomatic. 2. Evidence of prior L1 and L4 kyphoplasty. 3. Additional multilevel degenerative changes without high-grade spinal canal stenosis or neural foraminal narrowing as detailed above. Assessment and Plan - Diagnosis (1) Lumbar compression fracture Qualifiers: Encounter type: initial encounter Lumbar vertebra fracture level: L3 Qualified Code(s): S32.030A - Wedge compression fracture of third lumbar vertebra, initial encounter for closed fracture Is this a current diagnosis for this admission?: Yes Plan: We will try pain control and she apparently has a back brace at home but her daughters can bring in. Physical therapy saw her today and recommended alf facility placement for rehab. I prepared the patient for that possibility as she seems agreeable. 05/14/2019 discussed with patient the possibility of a pain consult. Patient has had kyphoplasty done in [place] at L1 and L4 in the past. Will consult pain management for possible kyphoplasty at L3 05/15/2019 MRI of the lumbar spine has been completed. Pain management will deci de whether or not kyphoplasty is indicated patient has a great deal of pain with any kind of movement secondary to compression fracture. Patient is only using Toradol for pain management 05/16/2019 patient is to compression fractures L2 and L3. patient is a good candidate for kyphoplasty at these levels patient is on the schedule for May 21.. Until then work with physical therapy 05/17/2019 no change in pain no neurologic deficit 05/18/2019 she is still on track to have the kyphoplasty done Monday the .. Patient takes ibuprofen before she gets up and about but only 400 mg a dose 05/19/2019 patient is up and ambulatory more often now I told patient that she has a compression at 2 levels L2 and L3. L3 shows the largest amount of compression. Patient will find out the time she is on the schedule for Monday tomorrow. 05/20/2019 she is getting up and ambulating more in the room sitting in the chair more. Patient is medically stable for procedure tomorrow (2) Rapid atrial fibrillation Is this a current diagnosis for this admission?: Yes Plan: We will put her on a long-acting Cardizem this morning and her heart rate and blood pressure have tolerated it. Her chads vASC score is 2, only because of her age. She could be considered as a candidate for anticoagulation, but I am not sure if she is going to be agreeable to that. 05/14/2019 patient is currently getting Cardizem CD 120 mg daily 05/15/2019 patient's heart rate is averaging around 110. Will increase Cardizem CD to twice daily dosing 05/16/2019 Cardizem is now 120 CD twice daily her heart rate has responded quite well she is now in the 80s to 90s. Patient is asymptomatic from her atrial fib. She is still maintaining a good blood pressure 05/17/2019 heart rate is still doing well on the increase in Cardizem anywhere from 80s up to the low 100s, improvement. Blood pressures unchanged and stable 05-18-19 at rate seems to have stabilized around 88. Patient does not complain of dizziness, shortness of breath, or chest pain 05/19/2019 we will repeat EKG tomorrow morning patient is not symptomatic from her atrial fib although I do see P waves on her tracing from previous studies. Patient is on Cardizem CD twice daily 05/20/2019 will change Cardizem CD to 180 mg once daily instead of a twice daily dosing. EKG is pending for today. Patient is asymptomatic from her atrial fib (3) Urinary tract infection Qualifiers: Urinary tract infection type: acute cystitis Hematuria presence: with hematuria Qualified Code(s): N30.01 - Acute cystitis with hematuria Is this a current diagnosis for this admission?: Yes Plan: 05/14/2019 patient's urine grew out enterococcus faecalis. Patient is allergic to no antibiotics will place her on amoxicillin 250 3 times daily for 7 days 05/15/2019 patient currently on amoxicillin 250 3 times daily, day 2 -day 3 of amoxicillin continue this through the weekend. Patient has no symptoms from her UTI. This may be a contaminant. 05/17/2019 she states she may be voiding less now than she was, so she may have been somewhat symptomatic from her UTI. Continue the p.o. amoxicillin through the weekend, recheck a urine on Monday 48 hours from now. 05/18/2019 urinalysis as well as lab work is ordered for tomorrow a.m., patient is not complaining of any dysuria or incontinence 05 19 19 urinalysis from this morning is normal showing no nitrates no leukocytes patient has been on amoxicillin now for 6 days will DC this today.. No indication for culture and sensitivity 05/20/2019 she is still complains of urinary frequency this may be coming from an overactive bladder as opposed to a urinary tract infection. Will address this after she has her kyphoplasty performed. (4) Overactive bladder Is this a current diagnosis for this admission?: Yes Plan: 05/20/2019 this may be a new diagnosis for the patient needs to be addressed after her kyphoplasty. Urine from 922 is completely normal - Time Time Spent with patient: 25-34 minutes
[2019-05-20] MEDS: IBUPROFEN 400 MG TABLET PO PRN (23:09)
[2019-05-21] MEDS ORDERED: GLUCAGON,HUMAN RECOMB 1 MG INJ SUBCUT PRN (01:38)
[2019-05-21] MEDS ORDERED: DEXTROSE 50%-WATER 25 GM/50 ML DISP.SYRIN IV PRN ×2 (01:38)
[2019-05-21] MEDS ORDERED: DEXTROSE 40% GEL 15 GM TUBE PO PRN ×2 (01:38)
[2019-05-21] MEDS: HEPARIN SOD (PORCINE) 5,000 UNIT/ML 1 ML VIAL SUBCUT SCH ×3 (05:51→22:15)
[2019-05-21] MEDS: DOCUSATE SODIUM 100 MG CAPSULE PO SCH ×2 (09:48→16:59)
[2019-05-21] MEDS ORDERED: DILTIAZEM HCL 180 MG CAPSULE.CR PO SCH (10:00)
[2019-05-21] MEDS ORDERED: DIGOXIN INJ 0.5 MG/2 ML AMPULE IV ONE (10:22)
[2019-05-21] MEDS ORDERED: DILTIAZEM HCL 30 MG TABLET PO ONE (10:26)
[2019-05-21] MEDS ORDERED: ONDANSETRON HCL INJ/PF 4 MG/2 ML SDV ONE (10:51)
[2019-05-21] MEDS ORDERED: LIDOCAINE 1% INJ-PF (10 MG/ML) 30 ML SDV ONE (13:06)
[2019-05-21] MEDS ORDERED: BACITRACIN ZINC OINTMENT 15 GM ONE (13:07)
[2019-05-21] MEDS ORDERED: FENTANYL CITRATE INJ/PF 100 MCG/2 ML AMPUL ONE (13:15)
[2019-05-21] MEDS ORDERED: KETAMINE HCL INJ 500 MG/10 ML VIAL ONE (13:15)
[2019-05-21] MEDS ORDERED: PROPOFOL INJ 200 MG/20 ML VIAL IV ONE (13:16)
[2019-05-21] MEDS ORDERED: CEFAZOLIN INJ 1 GM VIAL ONE (14:00)
[2019-05-21] MEDS ORDERED: FENTANYL CITRATE INJ/PF 100 MCG/2 ML AMPUL IV PRN ×3 (14:42)
[2019-05-21] MEDS ORDERED: PROMETHAZINE HCL INJ 25 MG/1 ML VIAL IV PRN ×2 (14:42)
[2019-05-21] MEDS ORDERED: MEPERIDINE HCL/PF INJ 25 MG/1 ML DISP.SYRIN IV PRN (14:42)
[2019-05-21] MEDS ORDERED: DIPHENHYDRAMINE HCL 50 MG/ML VIAL IV PRN (14:42)
[2019-05-21] MEDS ORDERED: HYDROMORPHONE HCL INJ/PF 2 MG/ML AMPULE IV PRN (14:43)
[2019-05-21] MEDS ORDERED: LIDOCAINE 1% INJ (10 MG/ML) 10 ML MDV INJ ONE (15:01)
--- NOTE | 2019-05-21 15:14 | Operative Report ---
Operative Report DATE OF SURGERY: 05/21/19 PREOPERATIVE DIAGNOSIS: L2 and L3 vertebral compression fracture POSTOPERATIVE DIAGNOSIS: L2 and L3 vertebral compression fracture OPERATION: Kyphoplasty L2, L3 lumbar spine SURGEON: ISHAN BANDA ANESTHESIA: LMAC TISSUE REMOVED OR ALTERED: none COMPLICATIONS: none ESTIMATED BLOOD LOSS: 5 cc INTRAOPERATIVE FINDINGS: none PROCEDURE: > > DESCRIPTION OF PROCEDURE: > The patient was taken to the preoperative suite, informed consent was obtained from the patient, and all appropriate preoperative documentation was completed. Intravenous access was obtained and the patient was moved to the operating room. A time out was performed with the patient, nurse and attending physician present in the operative suite. Prophylactic antibiotics were administered in the form of 1 gram IV Ancef preoperatively and less than one hour before incision. The patient was positioned prone and all pressure points were checked while the patient was awake. Monitored anesthesia care was subsequently induced by the anesthesia care provider. > The L2 vertebral body was identified with fluoroscopic guidance. The skin overlying the target area was prepped with chlorhexidine x 2 and sterilely draped in the usual fashion maintaining meticulous sterile technique. Local a nesthesia was obtained with a total of 3 ml of preservative free 1% Lidocaine. A stab incision was made 1 cm lateral of the lateral border of each pedicle at the level of the target vertebral body. A 10 gauge trocar was introduced safely through each pedicle just inside the target vertebral body. The stylet of the trocar was removed and a working cannula was left in place. A drill was then inserted through both working cannulas, advanced under lateral fluoroscopic imaging, to a point just posterior to the anterior vertebral body wall. The drill was removed and balloons (one in each pedicle) were inserted through the working cannula stopping posterior to the anterior vertebral body wall. The balloons were inflated with radiopaque contrast dye in .5 mL increments. Lateral fluoroscopic images were obtained to confirm balloon inflation did not breach the superior or inferior endplates. A/P fluoroscopic images were obtained periodically to confirm that the lateral ramírez were not breached. Inflation of the balloons continued until the desired fracture reduction was achieved. The procedure above was then performed in the exact same manner at L3 vertebral body with fluoroscopic guidance. Once all 4 balloons were inflated, PMMA bone cement was prepared and filled in bone filler cannulas. The balloons were deflated and removed starting at the L2 and L3 vertebral bodies. The cement filled cannulas were inserted through the working cannula to the anterior portion of the vertebral body. The cement cannula plungers were used to push .2 mL increments of cement into the vertebral body. Lateral fluoroscopic images were obtained at .2 mL increments to verify that the cement did not extravasate. A/P fluoroscopic views were taken at incrementally to verify that the cement di d not extravasate laterally. Safe cement fill continued until the anterior 2/3 and the top of the vertebral body was filled. The bone cement cannulas were removed. Lateral fluoroscopic imaging confirmed that no cement migrated posteriorly up the working cannula. The working cannulas were removed and pressure was applied to the incision sites until adequate hemostasis was assured. The incision sites were then copiously irrigated with bacitracin solution. Steristrips were then placed. A total of 2.8 at L2 and 3.4 at L3 were instilled. > COUNTS: > Final sponge and needle counts were correct. > > > OPERATING ROOM DISPOSITION: > The patient was taken from the operating room to the recovery room in stable condition. > > FINAL DISPOSITION: > The patient was discharged from the PACU back to the floor >
--- NOTE | 2019-05-21 15:56 | RADIOLOGY REPORT (SQ) ---
EXAM DESCRIPTION: L SPINE 2 VIEWS; NO CHG FLUORO COMPLETED DATE/TIME: 05/21/2019 3:41 pm REASON FOR STUDY: KYPHOPLASTY LUMBAR 2 LEVELS ASST WITH FLUORO IN OR S32.019B UNSP FRACTURE OF FIRS T LUMBAR VERTEBRA, INIT FOR OP S32.028B OTH FRACTURE OF SECOND LUMBAR VERTEBRA, INIT FOR OP COMPARISON: None. FLUOROSCOPY TIME: 4.3 minutes. 40 images saved to PACS. TECHNIQUE: Intra-operative images acquired during surgical procedure to evaluate progress. NUMBER OF IMAGES: 40 images. LIMITATIONS: None. FINDINGS: Images of the spine acquired during the procedure. IMPRESSION: IMAGE(S) OBTAINED DURING PROCEDURE. COMMENT: Quality ID [id number]: Final reports for procedures using fluoroscopy that document radiation exp osure indices, or exposure time and number of fluorographic images (if radiation exposure indices are not available) Please consult full operative report of the attending physician for description of the procedure. TECHNICAL DOCUMENTATION: JOB ID: [id number] [employer]- All Rights Reserved Reading location - IP/workstation name: [email or web address]
--- NOTE | 2019-05-21 15:56 | RADIOLOGY REPORT (SQ) ---
EXAM DESCRIPTION: L SPINE 2 VIEWS; NO CHG FLUORO COMPLETED DATE/TIME: 05/21/2019 3:41 pm REASON FOR STUDY: KYPHOPLASTY LUMBAR 2 LEVELS ASST WITH FLUORO IN OR S32.019B UNSP FRACTURE OF FIRS T LUMBAR VERTEBRA, INIT FOR OP S32.028B OTH FRACTURE OF SECOND LUMBAR VERTEBRA, INIT FOR OP COMPARISON: None. FLUOROSCOPY TIME: 4.3 minutes. 40 images saved to PACS. TECHNIQUE: Intra-operative images acquired during surgical procedure to evaluate progress. NUMBER OF IMAGES: 40 images. LIMITATIONS: None. FINDINGS: Images of the spine acquired during the procedure. IMPRESSION: IMAGE(S) OBTAINED DURING PROCEDURE. COMMENT: Quality ID [id number]: Final reports for procedures using fluoroscopy that document radiation exp osure indices, or exposure time and number of fluorographic images (if radiation exposure indices are not available) Please consult full operative report of the attending physician for description of the procedure. TECHNICAL DOCUMENTATION: JOB ID: [id number] [employer]- All Rights Reserved Reading location - IP/workstation name: [email or web address]
[2019-05-21] MEDS ORDERED: NORMAL SALINE 1000 ML 1,000 ML IV ONE (18:03)
--- NOTE | 2019-05-21 18:18 | PDOC PROGRESS REPORT ---
Subjective Progress Note for:: 05/21/19 Subjective:: The patient is an 84-year-old female with a past medical history of atrial fibrillation, osteoporosis, recurrent compression fractures who was admitted 05/11/2019 for Atrial fibrillation with RVR and intractable back pain. The patient was seen on morning rounds. She is found resting in bed comfortably on room air. She reports continued low back pain and is frustrated by her impaired mobility. She does report anxiety regarding her upcoming kyphoplasty this afternoon. She reports urinary frequency without dysuria or urgency; she states that she has a nervous bladder and frequently experiences increased need to void when having generalized anxiety. Past, she denies fever, chills, chest pain, palpitations, dyspnea, orthopnea, abdominal pain, nausea vomiting or diarrhea. She has many questions regarding the kyphoplasty; reassurance provided as able. Patient is encouraged to ask Dr. Waite for clarification on the procedure, expected outcomes, and postprocedure mobility. No concerns per nursing. Reason For Visit: RAPID ATRIAL FIBRILATION,LUMBAR COMPRESSION Physical Exam Vital Signs: Temp Pulse Resp BP Pulse Ox 97.9 F 71 16 99/56 L 98 05/21/19 15:41 05/21/19 15:41 05/21/19 15:41 05/21/19 15:41 05/21/19 15:41 Intake & Output 05/20/19 05/21/19 05/22/19 06:59 06:59 06:59 Intake Total 840 1000 450 Output Total 200 Balance 840 800 450 Weight 68.6 kg 68.5 kg General appearance: PRESENT: no acute distress, cooperative, well-developed, well-nourished Head exam: PRESENT: atraumatic, normocephalic Eye exam: PRESENT: conjunctiva pink, EOMI, PERRLA. ABSENT: scleral icterus Ear exam: PRESENT: normal external ear exam Mouth exam: PRESENT: moist, tongue midline Neck exam: ABSENT: carotid bruit, JVD, lymphadenopathy, thyromegaly Respiratory exam: PRESENT: clear to auscultation william, symmetrical, unlabored. ABSENT: rales, rhonchi, wheezes Cardiovascular exam: PRESENT: irregular rhythm, +S1, +S2, tachycardia. ABSENT: diastolic murmur, rubs, systolic murmur Pulses: PRESENT: normal dorsalis pedis pul Vascular exam: PRESENT: normal capillary refill GI/Abdominal exam: PRESENT: normal bowel sounds, soft. ABSENT: distended, guarding, mass, organolmegaly, rebound, tenderness Rectal exam: PRESENT: deferred Extremities exam: PRESENT: other - Limited range of motion secondary to low back pain. ABSENT: calf tenderness, clubbing, pedal edema Neurological exam: PRESENT: alert, awake, oriented to person, oriented to place, oriented to time, oriented to situation, CN II-XII grossly intact. ABSENT: motor sensory deficit Psychiatric exam: PRESENT: anxious, appropriate affect. ABSENT: homicidal ideation, suicidal ideation Skin exam: PRESENT: dry, intact, warm. ABSENT: cyanosis, rash Results Laboratory Results: 05/19/19 05:36 05/19/19 05:36 05/11/19 15:30 Troponin I < 0.012 Impressions: Chest X-Ray 05/11/19 19:18 IMPRESSION: NO ACUTE RADIOGRAPHIC FINDING IN THE CHEST. Lumbar Spine CT 05/11/19 19:18 IMPRESSION: 1. Acute L3 compression fracture without retropulsion. 2. Prior kyphoplasty of L1 and L4. Lumbar Spine MRI 05/14/19 00:00 IMPRESSION: 1. Superior endplate compression deformities with mild edema involving the L2 and L3 vertebral bodies. No significant retropulsion. These would be amenable to kyphoplasty if patient is symptomatic. 2. Evidence of prior L1 and L4 kyphoplasty. 3. Additional multilevel degenerative changes without high-grade spinal canal stenosis or neural foraminal narrowing as detailed above. Fluoroscopy 05/21/19 00:00 IMPRESSION: IMAGE(S) OBTAINED DURING PROCEDURE. Lumbar Spine X-Ray 05/21/19 00:00 IMPRESSION: IMAGE(S) OBTAINED DURING PROCEDURE. Assessment and Plan - Diagnosis (1) Lumbar compression fracture Qualifiers: Encounter type: initial encounter Lumbar vertebra fracture level: unspecified lumbar vertebra Qualified Code(s): S32.000A - Wedge compression fracture of unspecified lumbar vertebra, initial encounter for closed fracture Is this a current diagnosis for this admission?: Yes Plan: Lumbar spine CT demonstrated an acute L3 compression fracture without retropulsion and prior kyphoplasty of L1 and L4. Lumbar spine MRI further refills superior endplate compression deformities with mild edema involving the L2 and L3 vertebral bodies, prior L1 and L4 kyphoplasty, and additional multilevel degenerative changes without high-grade spinal canal stenosis or neural foraminal narrowing. Pain management was consulted; patient underwent kyphoplasty by Dr. Waite today. Spoke with Dr. Waite; agrees with plan to discharge to SNF for short-term reha b. Continue PRN Tylenol, ibuprofen, and Dilaudid for breakthrough pain. Consider trial of Lidoderm patches. (2) Rapid atrial fibrillation Is this a current diagnosis for this admission?: Yes Plan: Patient was admitted to [facility] on continuous cardiac telemetry. She was initially treated with with a diltiazem drip. Was transitioned to oral diltiazem CD 120 mg twice daily. Patient requested once daily dosing; she was then transitioned to 180 mg once daily. Unfortunately this dose reduction resulted in return of rapid rate (115-150 while at rest today). She was provided a one-time dose of Diltiazem 30 mg with return of rate control. Plan for diltiazem CD 240 mg once daily to start tomorrow. The patient is noted to be slightly hypotensive following her procedure this afternoon; blood pressure is 99/56. This could be related to intraoperative sedation and pain medications. She will be provided a 1 L normal saline bolus. If she remains hypotensive tomorrow, she may not tolerate the increase diltiazem dose and may need to explore the option of digoxin or amiodarone for rate control without reduced blood pressures. (Patient is reportedly intolerant of Toprolol). Consider cardiology consultation. [id number] Score 2 r/t age. Patient declining anticoagulant therapy. (3) UTI (urinary tract infection) Is this a current diagnosis for this admission?: Yes Plan: Resolved. Urine culture demonstrated enterococcus faecalis Completed full course of antibiotic therapy. Follow up urinalysis is nml. (4) Overactive bladder Is this a current diagnosis for this admission?: Yes Plan: Unlikely to be related to urinary tract infection; completed full course of antibiotic therapy. Follow-up urinalysis is negative. Patient does confirm that she often has urinary frequency, especially when under anxiety. She declines trial of anticholinergic (Ditropan/Mybitriq) at this time. - Time Time Spent with patient: 25-34 minutes Medications reviewed and adjusted accordingly: Yes Anticipated discharge: SNF - short term rehab Within: when bed available
[2019-05-22] MEDS: HEPARIN SOD (PORCINE) 5,000 UNIT/ML 1 ML VIAL SUBCUT SCH ×3 (05:25→22:15)
[2019-05-22] MEDS ORDERED: DILTIAZEM HCL 240 MG CAPSULE.CR PO SCH (10:00)
[2019-05-22] MEDS: DOCUSATE SODIUM 100 MG CAPSULE PO SCH ×2 (10:33→17:54)
[2019-05-22] MEDS ORDERED: IBUPROFEN 800 MG TABLET ONE (10:39)
[2019-05-22] MEDS: IBUPROFEN 400 MG TABLET PO PRN (10:41)
[2019-05-22 12:57] LABS: APPEARANCE,URINE CLOUDY; BILIRUBIN,URINE NEGATIVE (NEGATIVE); COLOR,URINE YELLOW; GLUCOSE, URINE NEGATIVE (NEGATIVE); KETONES,URINE NEGATIVE (NEGATIVE); LEUKOCYTE ESTERASE,URINE NEGATIVE (NEGATIVE); NITRITE,URINE NEGATIVE (NEGATIVE); PROTEIN,URINE NEGATIVE (NEGATIVE); UROBILINOGEN,URINE NEGATIVE mg/dL (<2.0)
--- NOTE | 2019-05-22 16:07 | PDOC PROGRESS REPORT ---
Subjective Progress Note for:: 05/22/19 Subjective:: The patient is an 84-year-old female with a past medical history of atrial fibrillation, osteoporosis, recurrent compression fractures who was admitted 05/11/2019 for Atrial fibrillation with RVR and intractable back pain. The patient was seen on morning rounds. She is found resting in bed comfortably on room air. She reports continued low back pain though improved; looking forward to getting out of bed today but is slightly anxious w/ regard to pain. She reports continued urinary frequency without dysuria; she states that she has a nervous bladder and frequently experiences increased need to void when having generalized anxiety. Today she is agreeable to starting treatment for OAB. She denies fever, chills, chest pain, palpitations, dyspnea, orthopnea, abdominal pain, nausea vomiting or diarrhea. She has no other questions or concerns. No concerns per nursing. Reason For Visit: RAPID ATRIAL FIBRILATION,LUMBAR COMPRESSION Physical Exam Vital Signs: Temp Pulse Resp BP Pulse Ox 97.9 F 45 L 18 96/59 L 95 05/22/19 11:49 05/22/19 11:49 05/22/19 11:49 05/22/19 11:49 05/22/19 11:49 Intake & Output 05/21/19 05/22/19 05/23/19 06:59 06:59 06:59 Intake Total 4957 681 8921 Output Total 200 150 Balance 635 773 9823 Weight 68.5 kg 67 kg General appearance: PRESENT: no acute distress, cooperative, well-developed, well-nourished Head exam: PRESENT: atraumatic, normocephalic Eye exam: PRESENT: conjunctiva pink, EOMI, PERRLA. ABSENT: scleral icterus Ear exam: PRESENT: normal external ear exam Mouth exam: PRESENT: moist, tongue midline Neck exam: ABSENT: carotid bruit, JVD, lymphadenopathy, thyromegaly Respiratory exam: PRESENT: clear to auscultation william, symmetrical, unlabored. ABSENT: rales, rhonchi, wheezes Cardiovascular exam: PRESENT: irregular rhythm, +S1, +S2. ABSENT: diastolic murmur, rubs, systolic murmur Pulses: PRESENT: normal dorsalis pedis pul Vascular exam: PRESENT: normal capillary refill GI/Abdominal exam: PRESENT: normal bowel sounds, soft. ABSENT: distended, guarding, mass, organolmegaly, rebound, tenderness Rectal exam: PRESENT: deferred Extremities exam: PRESENT: full ROM. ABSENT: calf tenderness, clubbing, pedal edema Musculoskeletal exam: PRESENT: tenderness - lower back Neurological exam: PRESENT: alert, awake, oriented to person, oriented to place, oriented to time, oriented to situation, CN II-XII grossly intact. ABSENT: motor sensory deficit Psychiatric exam: PRESENT: appropriate affect, normal mood. ABSENT: homicidal ideation, suicidal ideation Skin exam: PRESENT: dry, intact, warm. ABSENT: cyanosis, rash Results Laboratory Results: 05/19/19 05:36 05/19/19 05:36 05/22/19 12:33 Urine Color YELLOW Urine Appearance CLOUDY Urine pH 8.0 Ur Specific [place] 1.010 Urine Protein NEGATIVE Urine Glucose (UA) NEGATIVE Urine Ketones NEGATIVE Urine Blood NEGATIVE Urine Nitrite NEGATIVE Ur Leukocyte Esterase NEGATIVE Urine WBC (Auto) 0 Urine RBC (Auto) 0 05/11/19 15:30 Troponin I < 0.012 Impressions: Chest X-Ray 05/11/19 19:18 IMPRESSION: NO ACUTE RADIOGRAPHIC FINDING IN THE CHEST. Lumbar Spine CT 05/11/19 19:18 IMPRESSION: 1. Acute L3 compression fracture without retropulsion. 2. Prior kyphoplasty of L1 and L4. Lumbar Spine MRI 05/14/19 00:00 IMPRESSION: 1. Superior endplate compression deformities with mild edema involving the L2 and L3 vertebral bodies. No significant retropulsion. These would be amenable to kyphoplasty if patient is symptomatic. 2. Evidence of prior L1 and L4 kyphoplasty. 3. Additional multilevel degenerative changes without high-grade spinal canal stenosis or neural foraminal narrowing as detailed above. Fluoroscopy 05/21/19 00:00 IMPRESSION: IMAGE(S) OBTAINED DURING PROCEDURE. Lumbar Spine X-Ray 05/21/19 00:00 IMPRESSION: IMAGE(S) OBTAINED DURING PROCEDURE. Assessment and Plan - Diagnosis (1) Lumbar compression fracture Qualifiers: Encounter type: initial encounter Lumbar vertebra fracture level: unspecified lumbar vertebra Qualified Code(s): S32.000A - Wedge compression fracture of unspecified lumbar vertebra, initial encounter for closed fracture Is this a current diagnosis for this admission?: Yes Plan: Now s/p Kyphoplasty by Dr. Waite. Lumbar spine CT demonstrated an acute L3 compression fracture without retropu lsion and prior kyphoplasty of L1 and L4. Lumbar spine MRI further refills superior endplate compression deformities with mild edema involving the L2 and L3 vertebral bodies, prior L1 and L4 kyphoplas ty, and additional multilevel degenerative changes without high-grade spinal canal stenosis or neural foraminal narrowing. Spoke with Dr. Waite following procedure; agrees with plan to discharge to SNF for short-term rehab. Continue PRN Tylenol, ibuprofen, and Dilaudid for breakthrough pain. Will trial Lidoderm patches. (2) Rapid atrial fibrillation Is this a current diagnosis for this admission?: Yes Plan: Patient was admitted to [facility] on continuous cardiac telemetry. She was initially treated with with a diltiazem drip. Was transitioned to oral diltiazem CD 120 mg twice daily. Patient requested once daily dosing; she was then transitioned to 180 mg once daily. Unfortunately this dose reduction resulted in return of rapid rate (115-150 while at rest today). She was provided a one-time dose of Diltiazem 30 mg with return of rate control. Diltiazem CD 240 mg once daily; now with hypotension. Discussed w/ Dr. Mariee; recommended decreasing to diltiazem cd 120 mg once daily, observe for 24 hours and consider increase to twice daily. Consider cardiology consultation. [id number] Score 2 r/t age. Patient declining anticoagulant therapy. (3) UTI (urinary tract infection) Is this a current diagnosis for this admission?: Yes Plan: Resolved. Urine culture demonstrated enterococcus faecalis Completed full course of antibiotic therapy. Follow up urinalysis today is nml. (4) Overactive bladder Is this a current diagnosis for this admission?: Yes Plan: Patient does confirm that she often has urinary frequency, especially when under anxiety. Agreeable today to discuss OAB treatment. UTI ruled out; repeat urinalysis is negative. Have asked nursing (two days in a row now) to check post void residual to r/o urinary retention with overflow incontinence. Will ask again. Start ditropan. - Time Time Spent with patient: 25-34 minutes Medications reviewed and adjusted accordingly: Yes Anticipated discharge: SNF - Short term rehab Within: within 48 hours
[2019-05-23] MEDS: HEPARIN SOD (PORCINE) 5,000 UNIT/ML 1 ML VIAL SUBCUT SCH ×3 (06:24→22:12)
[2019-05-23 07:09] LABS: HEMATOCRIT 41.8 % (36.0-47.0); HEMOGLOBIN 14.2 g/dL (12.0-15.5); MEAN CORPUSCULAR HEMOGLOBIN 30.9 pg (27.0-33.4); MEAN CORPUSCULAR HGB CONC 33.9 g/dL (32.0-36.0); MEAN CORPUSCULAR VOLUME 91 fl (80-97); PLATELET COUNT 238 10^3/uL (150-450); RED CELL DISTRIBUTION WIDTH 13.3 % (11.5-14.0); WHITE BLOOD COUNT 5.6 10^3/uL (4.0-10.5)
[2019-05-23 07:42] LABS: ANION GAP 9 (5-19); BLOOD UREA NITROGEN 25 mg/dL (7-20); CALCIUM 9.2 mg/dL (8.4-10.2); CARBON DIOXIDE 24 mmol/L (22-30); CHLORIDE 104 mmol/L (98-107); GLUCOSE 100 mg/dL (75-110); POTASSIUM 4.6 mmol/L (3.6-5.0)
[2019-05-23] MEDS ORDERED: DILTIAZEM HCL 120 MG CAP.SR.24H PO SCH (10:00)
[2019-05-23] MEDS: DOCUSATE SODIUM 100 MG CAPSULE PO SCH ×2 (11:19→17:41)
[2019-05-23] MEDS: IBUPROFEN 400 MG TABLET PO PRN (14:33)
--- NOTE | 2019-05-23 16:38 | PDOC PROGRESS REPORT ---
Subjective Progress Note for:: 05/23/19 Subjective:: The patient is an 84-year-old female with a past medical history of atrial fibrillation, osteoporosis, recurrent compression fractures who was admitted 05/11/2019 for Atrial fibrillation with RVR and intractable back pain. The patient was seen on morning rounds. She is found resting in bed comfortably on room air. She reports continued low back pain; reports pain responds well to motrin. She reports continued urinary frequency without dysuria; agreeable to starting treatment for OAB w/ ditropan. She is informed that it may take several weeks for this medication to become effective. She denies fever, chills, chest pain, palpitations, dyspnea, orthopnea, abd ominal pain, nausea vomiting or diarrhea. She has no other questions or concerns. Nursing informs me that patient remains in a fib, now with HR 120-150 while at rest. Reason For Visit: RAPID ATRIAL FIBRILATION,LUMBAR COMPRESSION Physical Exam Vital Signs: Temp Pulse Resp BP Pulse Ox 98.0 F 23 L 16 101/82 96 05/23/19 11:09 05/23/19 11:09 05/23/19 11:09 05/23/19 11:09 05/23/19 11:09 Intake & Output 05/22/19 05/23/19 05/24/19 06:59 06:59 06:59 Intake Total 650 1440 Output Total 150 450 Balance 500 990 Weight 67 kg 68.3 kg General appearance: PRESENT: no acute distress, cooperative, well-developed, well-nourished Head exam: PRESENT: atraumatic, normocephalic Eye exam: PRESENT: conjunctiva pink, EOMI, PERRLA. ABSENT: scleral icterus Ear exam: PRESENT: normal external ear exam Mouth exam: PRESENT: moist, tongue midline Neck exam: ABSENT: carotid bruit, JVD, lymphadenopathy, thyromegaly Respiratory exam: PRESENT: clear to auscultation william, symmetrical, unlabored. ABSENT: rales, rhonchi, wheezes Cardiovascular exam: PRESENT: irregular rhythm, +S1, +S2. ABSENT: diastolic murmur, rubs, systolic murmur Pulses: PRESENT: normal dorsalis pedis pul Vascular exam: PRESENT: normal capillary refill GI/Abdominal exam: PRESENT: normal bowel sounds, soft. ABSENT: distended, guarding, mass, organolmegaly, rebound, tenderness Rectal exam: PRESENT: deferred Extremities exam: PRESENT: full ROM. ABSENT: calf tenderness, clubbing, pedal edema Musculoskeletal exam: PRESENT: ambulatory, tenderness - lower back Neurological exam: PRESENT: alert, awake, oriented to person, oriented to place, oriented to time, oriented to situation, CN II-XII grossly intact. ABSENT: motor sensory deficit Psychiatric exam: PRESENT: appropriate affect, normal mood. ABSENT: homicidal ideation, suicidal ideation Skin exam: PRESENT: dry, intact, warm. ABSENT: cyanosis, rash Results Laboratory Results: 05/23/19 06:25 05/23/19 06:25 05/23/19 05/23/19 06:25 06:25 WBC 5.6 RBC 4.60 Hgb 14.2 Hct 41.8 MCV 91 MCH 30.9 MCHC 33.9 RDW 13.3 Plt Count 238 Sodium 136.9 L Potassium 4.6 Chloride 104 Carbon Dioxide 24 Anion Gap 9 BUN 25 H Creatinine 0.79 Est GFR ( Amer) > 60 Glucose 100 Calcium 9.2 05/11/19 15:30 Troponin I < 0.012 Impressions: Chest X-Ray 05/11/19 19:18 IMPRESSION: NO ACUTE RADIOGRAPHIC FINDING IN THE CHEST. Lumbar Spine CT 05/11/19 19:18 IMPRESSION: 1. Acute L3 compression fracture without retropulsion. 2. Prior kyphoplasty of L1 and L4. Lumbar Spine MRI 05/14/19 00:00 IMPRESSION: 1. Superior endplate compression deformities with mild edema involving the L2 and L3 vertebral bodies. No significant retropulsion. These would be amenable to kyphoplasty if patient is symptomatic. 2. Evidence of prior L1 and L4 kyphoplasty. 3. Additional multilevel degenerative changes without high-grade spinal canal stenosis or neural foraminal narrowing as detailed above. Fluoroscopy 05/21/19 00:00 IMPRESSION: IMAGE(S) OBTAINED DURING PROCEDURE. Lumbar Spine X-Ray 05/21/19 00:00 IMPRESSION: IMAGE(S) OBTAINED DURING PROCEDURE. Assessment and Plan - Diagnosis (1) Lumbar compression fracture Qualifiers: Encounter type: initial encounter Lumbar vertebra fracture level: unspecified lumbar vertebra Qualified Code(s): S32.000A - Wedge compression fracture of unspecified lumbar vertebra, initial encounter for closed fracture Is this a current diagnosis for this admission?: Yes Plan: Now s/p Kyphoplasty by Dr. Waite. Lumbar spine CT demonstrated an acute L3 compression fracture without retropulsion and prior kyphoplasty of L1 and L4. Lumbar spine MRI further refills superior endplate compression deformities with mild edema involving the L2 and L3 vertebral bodies, prior L1 and L4 kyphoplasty, and additional multilevel degenerative changes without high-grade spinal canal stenosis or neural foraminal narrowing. Spoke with Dr. Waite following procedure; agrees with plan to discharge to SNF for short-term rehab. Continue PRN Tylenol, ibuprofen, and Dilaudid for breakthrough pain. Will trial Lidoderm patches. (2) Rapid atrial fibrillation Is this a current diagnosis for this admission?: Yes Plan: Patient was admitted to [facility] on continuous cardiac telemetry. She was initially treated with with a diltiazem drip. Was transitioned to oral diltiazem. Unfortunately, the dose required to maintain rate control has resulted in symptomatic hypotension. Dose reductions result in return of rapid rate. Discussed w/ Dr. Mariee; recommended starting digoxin. Will obtain cardiology consultation. [id number] Score 2 r/t age. Patient declining anticoagulant therapy. (3) UTI (urinary tract infection) Is this a current diagnosis for this admission?: Yes Plan: Resolved. Urine culture demonstrated enterococcus faecalis Completed full course of antibiotic therapy. Follow up urinalysis today is nml. (4) Overactive bladder Is this a current diagnosis for this admission?: Yes Plan: Patient does confirm that she often has urinary frequency, especially when under anxiety. Agreeable today to discuss OAB treatment. UTI ruled out; repeat urinalysis is negative. Post void residual reportedly normal; not documented. Start ditropan. Outpatient urology follow up. - Time Time Spent with patient: 25-34 minutes Medications reviewed and adjusted accordingly: Yes Anticipated discharge: SNF Within: within 48 hours
[2019-05-23] MEDS: OXYBUTYNIN CHLORIDE 5 MG TABLET PO SCH (17:47)
[2019-05-23] MEDS: DILTIAZEM HCL 120 MG CAP.SR.24H PO SCH (22:11)
[2019-05-24] MEDS: HEPARIN SOD (PORCINE) 5,000 UNIT/ML 1 ML VIAL SUBCUT SCH ×2 (05:45→13:56)
[2019-05-24] MEDS ORDERED: DIGOXIN 0.125 MG TABLET PO SCH (10:00)
[2019-05-24] MEDS: DOCUSATE SODIUM 100 MG CAPSULE PO SCH (10:25)
[2019-05-24] MEDS: OXYBUTYNIN CHLORIDE 5 MG TABLET PO SCH (10:31)
[2019-05-24] MEDS: DILTIAZEM HCL 120 MG CAP.SR.24H PO SCH (10:31)
[2019-05-24] MEDS: IBUPROFEN 400 MG TABLET PO PRN (10:45)
[2019-05-24 13:20] VITALS: BP 92/69
--- NOTE | 2019-05-24 13:52 | PDOC TRANSFER SUMMARY ---
Impression - Admit/DC Date/PCP Admission Date/Primary Care Provider: 05/11/19 21:14 Discharge Date: 05/24/19 - Discharge Diagnosis (1) Lumbar compression fracture Is this a current diagnosis for this admission?: Yes (2) Rapid atrial fibrillation Is this a current diagnosis for this admission?: Yes (3) UTI (urinary tract infection) Is this a current diagnosis for this admission?: Yes (4) Overactive bladder Is this a current diagnosis for this admission?: Yes - Additional Information Resuscitation Status: Full Code Discharge Diet: Regular Discharge Activity: Activity As Tolerated, Balance Activity w/Rest, Supervised Activity Referrals: JENNY VIZCARRA MD [ACTIVE STAFF] - (Follow-up as needed.) Prescriptions: Diltiazem HCl [Cardizem Cd 120 mg Capsule] 120 mg PO DAILY #30 cap.sr.24h Oxybutynin Chloride [Ditropan 5 mg Tablet] 5 mg PO BID #60 tablet Home Medications: Acetaminophen [Tylenol 325 mg Tablet] 650 mg PO Q4HP PRN tablet 05/24/19 Diltiazem HCl [Cardizem Cd 120 mg Capsule] 120 mg PO DAILY #30 cap.sr.24h 05/24/19 Ibuprofen [Motrin 400 mg Tablet] 400 mg PO Q8HP PRN tablet 05/24/19 Oxybutynin Chloride [Ditropan 5 mg Tablet] 5 mg PO BID #60 tablet 05/24/19 History of Present Illiness History of Present Illness: Per H&P by Dr. Chapin: HUGH MARINO is a 84 year old female with a past medical history of osteoporosis with recurrent vertebral fracture, atrial fibrillation without medication secondary to intolerance of metoprolol, refusing anticoagulation with a homeopathic preference. In the emergency room she is found to have a subacute LS compression fracture without retropulsion, symptoms are easily managed without narcotics. She is found to have A. fib with RVR started on IV Cardizem and referred to the hospitalist for admission. Patient denies chest pain nausea vomiting shortness of breath and is referred to the hospitalist for admission. Patient admits noncompliance with prescribed medications preferring homeopathic remedies. She is unaware of these specific remedy names or products. Hospital Course Hospital Course: The patient was admitted to [facility] on continuous cardiac telemetry. Her atrial fibrillation was controlled initially with diltiazem drip which was transitioned to p.o. diltiazem. She did require multiple dose adjustments in order to find dosing that would allow for rate control without hypotension. She is now rate controlled 90s-100; does not experience tachycardia or palpitations when ambulatory on room air. The patient adamantly declines chronic anticoagulant therapy. Patient's care was discussed with cardiology services. Patient's urinary tract infection was appropriately treated; received full course of therapy. She does continue to have urinary frequency without urgency, dysuria, hematuria. Serial urinalysis is were negative for UTI. She has been placed on Ditropan 5 mg twice daily. Consider urology consultation if this medication is not effective after titrating up, as needed, in [address] and MRI imaging of the lumbar spine revealed acute L3 compression fracture. She underwent kyphoplasty by Dr. Waite. Her lower back pain is now well controlled with as needed Motrin and Lidoderm patches. She is ambulatory with minimal assistance, but requiring short-term rehabilitation prior to discharge to home. At time of discharge, the patient is in stable condition. She remains in atrial fibrillation but now rate controlled on diltiazem. She is instructed to follow-up with her primary care provider within 1 week and to establish with a local office employee as needed. She may also benefit from establishing with a urologist for further evaluation and treatment of overactive bladder. Physical Exam Vital Signs: Temp Pulse Resp BP Pulse Ox 97.7 F 89 16 92/69 L 97 05/24/19 11:33 05/24/19 11:33 05/24/19 11:33 05/24/19 11:33 05/24/19 11:33 Intake & Output 05/23/19 05/24/19 05/25/19 06:59 06:59 06:59 Intake Total 1440 860 Output Total 450 550 Balance 990 310 Weight 68.3 kg 69.7 kg General appearance: PRESENT: no acute distress, well-developed, well-nourished Head exam: PRESENT: atraumatic, normocephalic Eye exam: PRESENT: conjunctiva pink, EOMI, PERRLA. ABSENT: scleral icterus Ear exam: PRESENT: normal external ear exam Mouth exam: PRESENT: moist, tongue midline Neck exam: ABSENT: carotid bruit, JVD, lymphadenopathy, thyromegaly Respiratory exam: PRESENT: clear to auscultation william, symmetrical, unlabored. ABSENT: rales, rhonchi, wheezes Cardiovascular exam: PRESENT: irregular rhythm, +S1, +S2. ABSENT: diastolic murmur, rubs, systolic murmur Pulses: PRESENT: normal dorsalis pedis pul Vascular exam: PRESENT: normal capillary refill GI/Abdominal exam: PRESENT: normal bowel sounds, soft. ABSENT: distended, guarding, mass, organolmegaly, rebound, tenderness Rectal exam: PRESENT: deferred Extremities exam: PRESENT: full ROM. ABSENT: calf tenderness, clubbing, pedal edema Musculoskeletal exam: PRESENT: ambulatory, tenderness - Low back Neurological exam: PRESENT: alert, awake, oriented to person, oriented to place, oriented to time, oriented to situation, CN II-XII grossly intact. ABSENT: motor sensory deficit Psychiatric exam: PRESENT: appropriate affect, normal mood. ABSENT: homicidal ideation, suicidal ideation Skin exam: PRESENT: dry, intact, warm. ABSENT: cyanosis, rash Results Laboratory Results: WBC 5.6 10^3/uL (4.0-10.5) 05/23/19 06:25 RBC 4.60 10^6/uL (3.72-5.28) 05/23/19 06:25 Hgb 14.2 g/dL (12.0-15.5) 05/23/19 06:25 Hct 41.8 % (36.0-47.0) 05/23/19 06:25 MCV 91 fl (80-97) 05/23/19 06:25 MCH 30.9 pg (27.0-33.4) 05/23/19 06:25 MCHC 33.9 g/dL (32.0-36.0) 05/23/19 06:25 RDW 13.3 % (11.5-14.0) 05/23/19 06:25 Plt Count 238 10^3/uL (150-450) 05/23/19 06:25 Lymph % (Auto) 22.0 % (13-45) 05/19/19 05:36 [place] % (Auto) 7.9 % (3-13) 05/19/19 05:36 Eos % (Auto) 2.4 % (0-6) 05/19/19 05:36 Baso % (Auto) 0.8 % (0-2) 05/19/19 05:36 Absolute Neuts (auto) 3.5 10^3/uL (1.7-8.2) 05/19/19 05:36 Absolute Lymphs (auto) 1.1 10^3/uL (0.5-4.7) 05/19/19 05:36 Absolute Monos (auto) 0.4 10^3/uL (0.1-1.4) 05/19/19 05:36 Absolute Eos (auto) 0.1 10^3/uL (0.0-0.6) 05/19/19 05:36 Absolute Basos (auto) 0.0 10^3/uL (0.0-0.2) 05/19/19 05:36 Seg Neutrophils % 66.9 % (42-78) 05/19/19 05:36 Sodium 136.9 mmol/L (137-145) L 05/23/19 06:25 Potassium 4.6 mmol/L (3.6-5.0) 05/23/19 06:25 Chloride 104 mmol/L (98-107) 05/23/19 06:25 Carbon Dioxide 24 mmol/L (22-30) 05/23/19 06:25 Anion Gap 9 (5-19) 05/23/19 06:25 BUN 25 mg/dL (7-20) H 05/23/19 06:25 Creatinine 0.79 mg/dL (0.52-1.25) 05/23/19 06:25 Est GFR ( Amer) > 60 (>60) 05/23/19 06:25 Est GFR (MDRD) Non-Af > 60 (>60) 05/23/19 06:25 Glucose 100 mg/dL (75-110) 05/23/19 06:25 Calcium 9.2 mg/dL (8.4-10.2) 05/23/19 06:25 Total Bilirubin 1.5 mg/dL (0.2-1.3) H 05/11/19 15:30 Direct Bilirubin 0.2 mg/dL (0.0-0.4) 05/11/19 15:30 Neonat Total Bilirubin Not Reportable 05/11/19 15:30 Neonat Direct Bilirubin 0.0 mg/dL (0.0-0.3) 05/11/19 15:30 Neonat Indirect Bili Not Reportable 05/11/19 15:30 AST 22 U/L (14-36) 05/11/19 15:30 ALT 17 U/L (<35) 05/11/19 15:30 Alkaline Phosphatase 83 U/L (38-126) 05/11/19 15:30 Troponin I < 0.012 ng/mL 05/11/19 15:30 Total Protein 7.6 g/dL (6.3-8.2) 05/11/19 15:30 Albumin 4.6 g/dL (3.5-5.0) 05/11/19 15:30 TSH 1.62 uIU/mL (0.47-4.68) 05/11/19 15:30 Urine Color YELLOW 05/22/19 12:33 Urine Appearance CLOUDY 05/22/19 12:33 Urine pH 8.0 (5.0-9.0) 05/22/19 12:33 Ur Specific [place] 1.010 05/22/19 12:33 Urine Protein NEGATIVE mg/dL (NEGATIVE) 05/22/19 12:33 Urine Glucose (UA) NEGATIVE mg/dL (NEGATIVE) 05/22/19 12:33 Urine Ketones NEGATIVE mg/dL (NEGATIVE) 05/22/19 12:33 Urine Blood NEGATIVE (NEGATIVE) 05/22/19 12:33 Urine Nitrite NEGATIVE (NEGATIVE) 05/22/19 12:33 Urine Bilirubin NEGATIVE (NEGATIVE) 05/22/19 12:33 Urine Urobilinogen NEGATIVE mg/dL (<2.0) 05/22/19 12:33 Ur Leukocyte Esterase NEGATIVE (NEGATIVE) 05/22/19 12:33 Urine WBC (Auto) 0 /HPF 05/22/19 12:33 Urine RBC (Auto) 0 /HPF 05/22/19 12:33 U Hyaline Cast (Auto) 5 /LPF 05/11/19 18:10 Urine Bacteria (Auto) TRACE /HPF 05/22/19 12:33 Squamous Epi Cells Auto <1 /HPF 05/22/19 12:33 Waxy Casts (Auto) 1 /LPF 05/19/19 06:40 Urine Mucus (Auto) RARE /LPF 05/19/19 06:40 Urine Ascorbic Acid NEGATIVE (NEGATIVE) 05/22/19 12:33 05/11/19 15:30 Troponin I < 0.012 Impressions: Chest X-Ray 05/11/19 19:18 IMPRESSION: NO ACUTE RADIOGRAPHIC FINDING IN THE CHEST. Lumbar Spine CT 05/11/19 19:18 IMPRESSION: 1. Acute L3 compression fracture without retropulsion. 2. Prior kyphoplasty of L1 and L4. Lumbar Spine MRI 05/14/19 00:00 IMPRESSION: 1. Superior endplate compression deformities with mild edema involving the L2 and L3 vertebral bodies. No significant retropulsion. These would be amenable to kyphoplasty if patient is symptomatic. 2. Evidence of prior L1 and L4 kyphoplasty. 3. Additional multilevel degenerative changes without high-grade spinal canal stenosis or neural foraminal narrowing as detailed above. Fluoroscopy 05/21/19 00:00 IMPRESSION: IMAGE(S) OBTAINED DURING PROCEDURE. Lumbar Spine X-Ray 05/21/19 00:00 IMPRESSION: IMAGE(S) OBTAINED DURING PROCEDURE. Plan Plan of Treatment: Discharge to SNF for short-term rehab. Follow-up with primary care provider within 1 week. Establish with local office employee as needed. Return to the emergency department as needed for concerning symptoms. Time Spent: Greater than 30 Minutes Stroke Is this a Stroke Patient?: No Acute Heart Failure - Is this a Heart Failure Patient?: No
== END 2019-05-24 16:39 | DRG 516 ==
LOC: ER 13:06 → EH 21:14 → 3W 23:45
PROVIDERS: ADMIT Internal Medicine; ATTEND Internal Medicine
PROC: 0QU03JZ Supplement Lumbar Vertebra with Synthetic Substitute, Percutaneous Approach (ICD-10-PCS; 2019-05-21)
PROC: 0QS03ZZ Reposition Lumbar Vertebra, Percutaneous Approach (ICD-10-PCS; principal; 2019-05-21 14:00)
DX: M80.88XA Other osteoporosis with current pathological fracture, vertebra(e), initial encounter for fracture (principal); N30.01 Acute cystitis with hematuria; I48.91 Unspecified atrial fibrillation; N32.81 Overactive bladder; Z91.14 Patient's other noncompliance with medication regimen; M54.5 Low back pain; G89.29 Other chronic pain; B95.2 Enterococcus as the cause of diseases classified elsewhere; Z53.29 Procedure and treatment not carried out because of patient's decision for other reasons
CPT/HCPCS: 01936; 36415; 71045; 72100; 72131; 72148; 80048; 80053; 81001; 84443; 84484; 85025; 85027; 87086; 87088; 87186; 93005; 93010; 96361; 96374; 99285; C1713; J0690; J1644; J2405; J2704; J3010; J3490; J7030; J7040